=== PATIENT | female | born 1950 | race Caucasian/White ===

== ENCOUNTER 2016-11-24 13:42 | Inpatient (IN) | payer MEDICAID ==
--- NOTE | 2016-11-24 15:34 | DR.H&P ---
H&P - History & Physical for Day of: H&P Date: 11/24/16 - Chief Complaint Chief Complaint: FLU, FEVER, URI - History of Present Illness History of Present Illness: THE PATIENT IS A 65YO WF RESIDENT OF [facility] WHO HAS HAD ELEVATED TEMPERATURES OF 102F. PATIENT HAS HAD COUGH AND CONGESTION WELL. PATIENT TESTED POSITIVE FOR FLU. - Past Medical History Past Medical History: Anxiety, Arthritis, Depression, GERD, Hypothyroidism, PUD Additional Medical History: SYSTEMIC LUPUS, INSOMNIA, COMPRESSION FX THORACIC SPINE, BARRETTS ESOPHAGUS, +RODRÍGUEZ - Past Surgical History Surgical History: Hysterectomy, Joint Replacement (LEFT HIP), Ortho Surgery ( LEFT FOOT SURGERY) - Family History Family Medical History: Diabetes Mellitus, Cancer - Social History Does patient currently use any type of tobacco product: No Have you used tobacco products in the last 12 months: No Type of Tobacco Use: None Does any household member use tobacco: No Alcohol Use: None Drug Use: None - Review of Systems Constitutional: Fever, Chills, Weakness, Malaise Eyes: No Symptoms Reported ENT: No Symptoms Reported Respiratory: Cough Cardiovascular: No Symptoms Reported Gastrointestinal: No Symptoms Reported Genitourinary: No Symptoms Reported Musculoskeletal: No Symptoms Reported Skin: No Symptoms Reported Neurological: No Symptoms Reported Oriented: Normal Eyes: Normal Ear: Normal Nose: Normal Throat: Normal Respiratory: Diminished Throughout Cardiovascular: Normal : Normal Auscultation: Bowel Sounds: Normal Palpation: Normal Tenderness: Normal Skin: Normal Musculoskeletal: Normal Psychiatric: Normal Mood Description: Calm Affect: Quiet Speech Pattern: Unclear - Assessment/Plan (1) Influenza Status: Acute Plan: TAMIFLU, LABS, CXR (2) Fever Qualifiers: Fever type: due to other condition Encounter type: E Qualified Code(s): R50.81 - Fever presenting with conditions classified elsewhere Status: Acute Plan: ANTIPYRETICS (3) URI due to influenza Status: Acute Plan: TAMAFLU, CXR, LABS
[2016-11-24] MEDS: DUONEB 0.5 MG/3 MG NEB SCH ×2 (17:31→20:10)
[2016-11-24 17:46] LABS: BASOPHILS % (AUTO) 0.7 % (0.2-1.0); EOSINOPHILS % (AUTO) 0.6 % (0.9-2.9); HEMATOCRIT 27.7 % (36.0-47.0); HEMOGLOBIN 9.5 g/dL (12.0-16.0); LYMPHOCYTES # (AUTO) 0.8 X10^3/uL (1.3-2.9); LYMPHOCYTES % (AUTO) 19.1 % (21.0-51.0); MEAN CORPUSCULAR HEMOGLOBIN 28.5 pg (27.0-34.0); MEAN CORPUSCULAR HGB CONC 34.2 g/dL (33.0-35.0); MEAN CORPUSCULAR VOLUME 83.2 fL (80.0-100.0); MEAN PLATELET VOLUME 7.5 fL (7.4-11.0); MONOCYTES # (AUTO) 0.3 x10^3/uL (0.3-0.8); NEUTROPHILS # (AUTO) 3.2 x10^3/uL (2.2-4.8); NEUTROPHILS % (AUTO) 72.6 % (42.0-75.0); PLATELET COUNT 323 X10^3/uL (150.0-450.0); RED BLOOD COUNT 3.33 X10^6/uL (3.5-5.4); RED CELL DISTRIBUTION WIDTH 16.1 % (11.6-16.5); WHITE BLOOD COUNT 4.4 X10^3/uL (3.6-10.0)
[2016-11-24 18:04] LABS: BLOOD UREA NITROGEN 22 mg/dL (7-18); CALCIUM 7.9 mg/dL (8.5-10.1); CHLORIDE 96 mmol/L (98-107); CREATININE 1.55 mg/dL (0.55-1.02); GLUCOSE 91 mg/dL (65-99); SODIUM 135 mmol/L (136-145); eGFR BLACK RACES 43 (>60); eGFR NON BLACK RACES 36 (>60)
[2016-11-24] MEDS: NS 1000 ML 1,000 ML IV SCH (18:39)
[2016-11-24 19:33] LABS: BILIRUBIN,URINE NEGATIVE (NEGATIVE); BLOOD/HEMOGLOBIN,URINE 2+ (NEGATIVE); GLUCOSE, URINE NEGATIVE (NEGATIVE); KETONES,URINE NEGATIVE (NEGATIVE); LEUKOCYTE ESTERASE ,URINE 3+ (NEGATIVE); NITRITES,URINE NEGATIVE (NEGATIVE); PROTEIN,URINE 1+ (NEGATIVE); UROBILINOGEN,URINE NORMAL (NORMAL)
[2016-11-24 19:40] LABS: APPEARANCE,URINE HAZY (CLEAR); BACTERIA,URINE 4+ /HPF (NEGATIVE); COLOR,URINE YELLOW (YELLOW); RBC,URINE 0-2 /HPF (NEGATIVE); SQUAMOUS EPITHELIAL CELL,UR RARE /HPF (NEGATIVE)
[2016-11-24] MEDS ORDERED: KLONOPIN TAB 0.5 MG PO PRN (20:43)
[2016-11-24] MEDS ORDERED: K-LYTE EFFERVESCENT PO PRN (20:46)
[2016-11-24] MEDS ORDERED: K-RIDER 10 MEQ/NS 100 ML 10 MEQ/100 ML BAG IV PRN (20:46)
[2016-11-24] MEDS ORDERED: K-DUR TAB 20 MEQ PO PRN (20:46)
[2016-11-24] MEDS: REGLAN TAB 5 MG PO PRN (21:31)
[2016-11-24] MEDS: SOLU-MEDROL 40 MG VIAL IVP SCH (21:31)
[2016-11-24] MEDS: ZOFRAN INJ 4 MG VIAL IVP PRN (21:31)
[2016-11-24] MEDS: POTASSIUM CHLORIDE LIQ 20 MEQ UDC PO PRN (21:32)
[2016-11-24] MEDS: TAMIFLU PO SCH (21:32)
[2016-11-25] MEDS: DUONEB 0.5 MG/3 MG NEB SCH ×6 (00:39→20:11)
[2016-11-25 05:35] LABS: BASOPHILS % (AUTO) 0.3 % (0.2-1.0); HEMATOCRIT 29.1 % (36.0-47.0); HEMOGLOBIN 9.8 g/dL (12.0-16.0); LYMPHOCYTES # (AUTO) 0.2 X10^3/uL (1.3-2.9); LYMPHOCYTES % (AUTO) 7.4 % (21.0-51.0); MEAN CORPUSCULAR HEMOGLOBIN 28.2 pg (27.0-34.0); MEAN CORPUSCULAR HGB CONC 33.6 g/dL (33.0-35.0); MEAN PLATELET VOLUME 7.8 fL (7.4-11.0); MONOCYTES # (AUTO) 0 x10^3/uL (0.3-0.8); MONOCYTES % (AUTO) 1.2 % (0.0-13.0); NEUTROPHILS # (AUTO) 2.6 x10^3/uL (2.2-4.8); NEUTROPHILS % (AUTO) 91.1 % (42.0-75.0); PLATELET COUNT 338 X10^3/uL (150.0-450.0); RED BLOOD COUNT 3.46 X10^6/uL (3.5-5.4); RED CELL DISTRIBUTION WIDTH 15.9 % (11.6-16.5); WHITE BLOOD COUNT 2.8 X10^3/uL (3.6-10.0)
[2016-11-25 05:38] LABS: ALBUMIN 2.8 g/dL (3.4-5.0); CALCIUM 8.4 mg/dL (8.5-10.1); COR CA(FOR HYPOALB) 9.4 mg/dL (8.5-10.1); CREATININE 1.79 mg/dL (0.55-1.02); TOTAL PROTEIN 7.1 g/dL (6.4-8.2)
[2016-11-25 06:01] LABS: BAND NEUTROPHILS % 5 % (0-10); HYPOCHROMASIA SLIGHT; PLATELET MORPHOLOGY COMMENT NORMAL (NORMAL)
--- NOTE | 2016-11-25 06:45 | RAD ---
HISTORY: Cough, URI Study: Chest two-view Comparison: None Findings: The trachea is midline. The cardiac silhouette is enlarged. No congestive heart failure is noted.. The lungs are clear without focal infiltrate or effusion. The bony thorax is unremarkable. IMPRESSION: 1. Cardiomegaly without congestive heart failure 2. Lungs clear Reported By:
[2016-11-25] MEDS: TAMIFLU PO SCH ×2 (09:15→20:30)
[2016-11-25] MEDS: SOLU-MEDROL 40 MG VIAL IVP SCH ×2 (09:15→20:29)
[2016-11-25] MEDS: ZOFRAN INJ 4 MG VIAL IVP PRN ×2 (12:39→20:31)
[2016-11-25 17:49] VITALS: BMI 23.9
[2016-11-25] MEDS ORDERED: MAALOX or MYLANTA PO PRN (17:50)
[2016-11-25] MEDS: NS 1000 ML 1,000 ML IV SCH (18:07)
[2016-11-25] MEDS: REGLAN TAB 5 MG PO PRN (18:13)
--- NOTE | 2016-11-25 18:29 | PCM.PROG ---
Progress Note - Progress Note for Day of Date: 11/25/16 - Subjective Subjective: patient complains of nausea and vomiting this morning. Patient complains of being very nervous and jittery. Patient is a 65-year-old white female who was admitted one day ago from the [facility] with the stomach flu. Plan to continue IV hydration and encourage by mouth hydration as well as nausea control. We'll repeat a.m. labs - Past Medical Family Social History Past Med/Fam/Surg Hx: No changes since H&P Allergies: Allergies Loratadine [From Claritin] Allergy (Verified 11/24/16 17:20) Penicillins Allergy (Verified 11/24/16 17:20) Promethazine [From Phenergan] Allergy (Verified 11/24/16 17:20) - Review of Systems ROS: No change since H&P - Vital Signs and I&O's Vital Signs: Temperature 98.4 F Pulse Rate [Right Brachial] 110 Pulse Rate [Left Brachial] 100 Pulse Rate 101 Respiratory Rate 20 Blood Pressure [Right Arm] 108/60 Blood Pressure [Left Arm] 105/54 O2 Sat by Pulse Oximetry 96 Intake and Output: Intake & Output 11/23/16 11/24/16 11/25/16 11/26/16 11:59 11:59 11:59 11:59 Intake Total 580 1700 Output Total 300 Balance 280 1700 - Physical Exam Oriented: Normal Eyes: Normal Ear: Normal Nose: Normal Throat: Normal Respiratory: Normal Cardiovascular: Normal : Normal Auscultation: Bowel Sounds: Normal Tenderness: Epigastric Skin: Normal Musculoskeletal: Normal Psychiatric: Anxiety Mood Description: Anxious Affect: Quiet Speech Pattern: Clear, Appropriate - Laboratory and Diagnostics Result Diagrams: 11/25/16 03:45 11/25/16 03:45 Labs: 11/24/16 19:16 Urine,Clean Catch Urine Culture - Preliminary Laboratory WBC 2.8 X10^3/uL (3.6-10.0) L 11/25/16 03:45 RBC 3.46 X10^6/uL (3.5-5.4) L 11/25/16 03:45 Hgb 9.8 g/dL (12.0-16.0) L 11/25/16 03:45 Hct 29.1 % (36.0-47.0) L 11/25/16 03:45 MCV 84.0 fL (80.0-100.0) 11/25/16 03:45 MCH 28.2 pg (27.0-34.0) 11/25/16 03:45 MCHC 33.6 g/dL (33.0-35.0) 11/25/16 03:45 RDW 15.9 % (11.6-16.5) 11/25/16 03:45 Plt Count 338 X10^3/uL (150.0-450.0) 11/25/16 03:45 Plt Count Comment Adequate (ADEQUATE) 11/25/16 03:45 MPV 7.8 fL (7.4-11.0) 11/25/16 03:45 Neut % 91.1 % (42.0-75.0) H 11/25/16 03:45 Lymph % 7.4 % (21.0-51.0) L 11/25/16 03:45 [place] % 1.2 % (0.0-13.0) 11/25/16 03:45 Eos % 0.0 % (0.9-2.9) L 11/25/16 03:45 Baso % 0.3 % (0.2-1.0) 11/25/16 03:45 Neut # 2.6 x10^3/uL (2.2-4.8) 11/25/16 03:45 Lymph # 0.2 X10^3/uL (1.3-2.9) L 11/25/16 03:45 [place] # 0 x10^3/uL (0.3-0.8) L 11/25/16 03:45 Eos # 0.0 x10^3/uL (0.0-0.2) 11/25/16 03:45 Baso # 0.0 X10^3/uL (0.0-0.1) 11/25/16 03:45 Absolute Nucleated RBC 0.0 /100WBC 11/25/16 03:45 Total Counted 100 11/25/16 03:45 Neutrophils % (Manual) 81 % (39-76) H 11/25/16 03:45 Band Neutrophils % 5 % (0-10) 11/25/16 03:45 Lymphocytes % (Manual) 14 % (13-43) 11/25/16 03:45 Plt Morphology Comment Normal (NORMAL) 11/25/16 03:45 RBC Morphology Abnormal (NORMAL) A 11/25/16 03:45 Hypochromasia Slight A 11/25/16 03:45 Sodium 137 mmol/L (136-145) 11/25/16 03:45 Corrected Sodium 139 mmol/L (136-145) 11/25/16 03:45 Potassium 3.5 mmol/L (3.5-5.1) 11/25/16 03:45 Chloride 97 mmol/L (98-107) L 11/25/16 03:45 Carbon Dioxide 25.0 mmol/L (21-32) 11/25/16 03:45 BUN 21 mg/dL (7-18) H 11/25/16 03:45 Creatinine 1.79 mg/dL (0.55-1.02) H 11/25/16 03:45 Est GFR (MDRD) Af Amer 37 (>60) L 11/25/16 03:45 Est GFR (MDRD) Non-Af 30 (>60) L 11/25/16 03:45 Glucose 186 mg/dL (65-99) H 11/25/16 03:45 Calcium 8.4 mg/dL (8.5-10.1) L 11/25/16 03:45 Corrected Calcium 9.4 mg/dL (8.5-10.1) 11/25/16 03:45 Magnesium 1.9 mg/dL (1.7-2.9) 11/24/16 17:30 Total Bilirubin 0.20 mg/dL (0.2-1.0) 11/25/16 03:45 AST 22 Units/L (15-37) 11/25/16 03:45 ALT 13 Units/L (12-78) 11/25/16 03:45 Alkaline Phosphatase 91 Units/L (46-116) 11/25/16 03:45 Total Protein 7.1 g/dL (6.4-8.2) 11/25/16 03:45 Albumin 2.8 g/dL (3.4-5.0) L 11/25/16 03:45 Globulin 4.3 g/dL (2.5-4.5) 11/25/16 03:45 Albumin/Globulin Ratio 0.7 Ratio (1.1-2.1) L 11/25/16 03:45 Specimen Type Clean catch urine 11/24/16 19:16 Urine Color Yellow (YELLOW) 11/24/16 19:16 Urine Appearance Hazy (CLEAR) 11/24/16 19:16 Urine pH 6.0 (5.0 - 8.0) 11/24/16 19:16 Ur Specific [employer] 1.010 (1.000-1.030) 11/24/16 19:16 Urine Protein 1+ (NEGATIVE) 11/24/16 19:16 Urine Glucose (UA) Negative (NEGATIVE) 11/24/16 19:16 Urine Ketones Negative (NEGATIVE) 11/24/16 19:16 Urine Occult Blood 2+ (NEGATIVE) 11/24/16 19:16 Urine Nitrite Negative (NEGATIVE) 11/24/16 19:16 Urine Bilirubin Negative (NEGATIVE) 11/24/16 19:16 Urine Urobilinogen Normal (NORMAL) 11/24/16 19:16 Ur Leukocyte Esterase 3+ (NEGATIVE) 11/24/16 19:16 Urine RBC 0-2 /HPF (NEGATIVE) 11/24/16 19:16 Urine WBC 11-25 /HPF (NEGATIVE) 11/24/16 19:16 Ur Squamous Epith Cells Rare /HPF (NEGATIVE) 11/24/16 19:16 Urine Bacteria 4+ /HPF (NEGATIVE) 11/24/16 19:16 Ur Culture Indicated? Yes/culture set up 11/24/16 19:16 Influenza A (H1N1) PCR Not detected (NOT DETECT) 11/24/16 17:26 Influenza Type A (PCR) Positive (NEGATIVE) A 11/24/16 17:26 Influenza Type B (PCR) Negative (NEGATIVE) 11/24/16 17:26 - Plan (1) Influenza Status: Acute Plan: TAMIFLU, LABS, CXR (2) SIMA (generalized anxiety disorder) Status: Acute Plan: RESUME HOME MEDS, MONITOR (3) Nausea & vomiting Status: Acute Qualifiers: Vomiting type: V Vomiting Intractability: V Plan: ANTIEMETICS, IV HYDRATION, CLEAR LIQUID DIET, MAY ADVANCE (4) Fever Status: Acute Qualifiers: Fever type: due to other condition Encounter type: E Qualified Code(s): R50.81 - Fever presenting with conditions classified elsewhere Plan: ANTIPYRETICS
[2016-11-25] MEDS: KLONOPIN TAB 0.5 MG PO SCH (21:43)
[2016-11-26] MEDS: DUONEB 0.5 MG/3 MG NEB SCH ×6 (00:31→20:48)
[2016-11-26 05:22] LABS: BASOPHILS % (AUTO) 0.1 % (0.2-1.0); HEMATOCRIT 27.3 % (36.0-47.0); HEMOGLOBIN 9.2 g/dL (12.0-16.0); LYMPHOCYTES # (AUTO) 0.5 X10^3/uL (1.3-2.9); LYMPHOCYTES % (AUTO) 5.9 % (21.0-51.0); MEAN CORPUSCULAR HEMOGLOBIN 28.5 pg (27.0-34.0); MEAN CORPUSCULAR HGB CONC 33.9 g/dL (33.0-35.0); MEAN CORPUSCULAR VOLUME 84.1 fL (80.0-100.0); MEAN PLATELET VOLUME 7.6 fL (7.4-11.0); MONOCYTES # (AUTO) 0.2 x10^3/uL (0.3-0.8); MONOCYTES % (AUTO) 2.1 % (0.0-13.0); NEUTROPHILS # (AUTO) 7.3 x10^3/uL (2.2-4.8); NEUTROPHILS % (AUTO) 91.9 % (42.0-75.0); PLATELET COUNT 339 X10^3/uL (150.0-450.0); RED BLOOD COUNT 3.24 X10^6/uL (3.5-5.4); RED CELL DISTRIBUTION WIDTH 16.3 % (11.6-16.5)
[2016-11-26 05:43] LABS: ALBUMIN 2.8 g/dL (3.4-5.0); CALCIUM 8.2 mg/dL (8.5-10.1); CARBON DIOXIDE 27.1 mmol/L (21-32); COR CA(FOR HYPOALB) 9.2 mg/dL (8.5-10.1); CREATININE 1.37 mg/dL (0.55-1.02); TOTAL PROTEIN 6.7 g/dL (6.4-8.2)
[2016-11-26 06:08] LABS: BAND NEUTROPHILS % 12 % (0-10); HYPOCHROMASIA 1+; PLATELET MORPHOLOGY COMMENT NORMAL (NORMAL)
[2016-11-26] MEDS: POTASSIUM CHLORIDE LIQ 20 MEQ UDC PO PRN (06:13)
[2016-11-26] MEDS: KLONOPIN TAB 0.5 MG PO SCH (06:13)
[2016-11-26] MEDS ORDERED: DULCOLAX TAB EC 5 MG PO PRN (08:41)
[2016-11-26] MEDS ORDERED: DUONEB 0.5 MG/3 MG NEB PRN (08:41)
[2016-11-26] MEDS ORDERED: TYLENOL 325 MG TAB PO PRN (08:41)
[2016-11-26] MEDS ORDERED: ULTRAM GT PRN (08:41)
[2016-11-26] MEDS ORDERED: [UNRECOGNIZED DRUG - REMARK] GT SCH (09:00)
[2016-11-26] MEDS ORDERED: [UNRECOGNIZED DRUG - OTHER] PO SCH (09:00)
[2016-11-26] MEDS: ZYRTEC TAB 10 MG GT SCH (09:17)
[2016-11-26] MEDS: CELEXA PO SCH (09:17)
[2016-11-26] MEDS: NORVASC TAB 5 MG GT SCH (09:17)
[2016-11-26] MEDS: ESTRACE GT SCH (09:17)
[2016-11-26] MEDS: MUCINEX EXPECTORANT PO SCH ×2 (09:17→21:19)
[2016-11-26] MEDS: SYNTHROID 50 mcg TAB GT SCH (09:18)
[2016-11-26] MEDS: TAMIFLU PO SCH ×2 (09:18→21:19)
[2016-11-26] MEDS: ARTIFICIAL TEARS DROPS EACHEYE SCH ×4 (09:18→21:20)
[2016-11-26] MEDS: TAB-A-VITE PO SCH (09:18)
[2016-11-26] MEDS: SOLU-MEDROL 40 MG VIAL IVP SCH ×2 (09:18→21:18)
[2016-11-26] MEDS: [UNRECOGNIZED DRUG - OTHER] EACHEYE SCH ×2 (09:22→21:20)
--- NOTE | 2016-11-26 18:33 | PCM.PROG ---
Progress Note - Subjective Subjective: Patient is a 65-year-old white female who was admitted one day ago from the [facility] with the stomach flu. pt co improved nausea, no vomiting , milding productive cough. Plan to continue IV hydration and encourage by mouth hydration as well as nausea control. We'll repeat a.m. labs - Past Medical Family Social History Past Med/Fam/Surg Hx: No changes since H&P Allergies: Allergies Loratadine [From Claritin] Allergy (Verified 11/24/16 17:20) Penicillins Allergy (Verified 11/24/16 17:20) Promethazine [From Phenergan] Allergy (Verified 11/24/16 17:20) - Review of Systems ROS: No change since H&P - Vital Signs and I&O's Vital Signs: Temperature 98.2 F Pulse Rate [Right Brachial] 107 Pulse Rate [Left Brachial] 100 Pulse Rate 74 Respiratory Rate 18 Blood Pressure [Right Arm] 107/57 Blood Pressure [Left Arm] 105/54 O2 Sat by Pulse Oximetry 94 Intake and Output: Intake & Output 11/24/16 11/25/16 11/26/16 11/27/16 11:59 11:59 11:59 11:59 Intake Total 580 2160 480 Output Total 300 600 Balance 280 1560 480 - Physical Exam Oriented: Normal Eyes: Normal Ear: Normal Nose: Normal Throat: Normal Respiratory: Normal Cardiovascular: Normal : Normal Auscultation: Bowel Sounds: Normal Tenderness: Epigastric Skin: Normal Musculoskeletal: Normal Psychiatric: Anxiety Mood Description: Anxious Affect: Quiet Speech Pattern: Clear, Appropriate - Laboratory and Diagnostics Result Diagrams: 11/26/16 04:00 11/26/16 04:00 Labs: 11/24/16 17:30 Blood Blood Culture - Preliminary 11/24/16 19:16 Urine,Clean Catch Urine Culture - Final Escherichia Coli Laboratory WBC 8.0 X10^3/uL (3.6-10.0) 11/26/16 04:00 RBC 3.24 X10^6/uL (3.5-5.4) L 11/26/16 04:00 Hgb 9.2 g/dL (12.0-16.0) L 11/26/16 04:00 Hct 27.3 % (36.0-47.0) L 11/26/16 04:00 MCV 84.1 fL (80.0-100.0) 11/26/16 04:00 MCH 28.5 pg (27.0-34.0) 11/26/16 04:00 MCHC 33.9 g/dL (33.0-35.0) 11/26/16 04:00 RDW 16.3 % (11.6-16.5) 11/26/16 04:00 Plt Count 339 X10^3/uL (150.0-450.0) 11/26/16 04:00 Plt Count Comment Adequate (ADEQUATE) 11/26/16 04:00 MPV 7.6 fL (7.4-11.0) 11/26/16 04:00 Neut % 91.9 % (42.0-75.0) H 11/26/16 04:00 Lymph % 5.9 % (21.0-51.0) L 11/26/16 04:00 [place] % 2.1 % (0.0-13.0) 11/26/16 04:00 Eos % 0.0 % (0.9-2.9) L 11/26/16 04:00 Baso % 0.1 % (0.2-1.0) L 11/26/16 04:00 Neut # 7.3 x10^3/uL (2.2-4.8) H 11/26/16 04:00 Lymph # 0.5 X10^3/uL (1.3-2.9) L 11/26/16 04:00 [place] # 0.2 x10^3/uL (0.3-0.8) L 11/26/16 04:00 Eos # 0.0 x10^3/uL (0.0-0.2) 11/26/16 04:00 Baso # 0.0 X10^3/uL (0.0-0.1) 11/26/16 04:00 Absolute Nucleated RBC 0.0 /100WBC 11/26/16 04:00 Total Counted 100 11/26/16 04:00 Neutrophils % (Manual) 76 % (39-76) 11/26/16 04:00 Band Neutrophils % 12 % (0-10) H 11/26/16 04:00 Lymphocytes % (Manual) 7 % (13-43) L 11/26/16 04:00 Monocytes % (Manual) 5 % (4-9) 11/26/16 04:00 Plt Morphology Comment Normal (NORMAL) 11/26/16 04:00 RBC Morphology Abnormal (NORMAL) A 11/26/16 04:00 Hypochromasia 1+ A 11/26/16 04:00 Sodium 140 mmol/L (136-145) 11/26/16 04:00 Corrected Sodium 141 mmol/L (136-145) 11/26/16 04:00 Potassium 3.4 mmol/L (3.5-5.1) L 11/26/16 04:00 Chloride 102 mmol/L (98-107) 11/26/16 04:00 Carbon Dioxide 27.1 mmol/L (21-32) 11/26/16 04:00 BUN 19 mg/dL (7-18) H 11/26/16 04:00 Creatinine 1.37 mg/dL (0.55-1.02) H 11/26/16 04:00 Est GFR (MDRD) Af Amer 50 (>60) L 11/26/16 04:00 Est GFR (MDRD) Non-Af 41 (>60) L 11/26/16 04:00 Glucose 159 mg/dL (65-99) H 11/26/16 04:00 Calcium 8.2 mg/dL (8.5-10.1) L 11/26/16 04:00 Corrected Calcium 9.2 mg/dL (8.5-10.1) 11/26/16 04:00 Magnesium 1.9 mg/dL (1.7-2.9) 11/24/16 17:30 Total Bilirubin 0.20 mg/dL (0.2-1.0) 11/26/16 04:00 AST 21 Units/L (15-37) 11/26/16 04:00 ALT 12 Units/L (12-78) 11/26/16 04:00 Alkaline Phosphatase 81 Units/L (46-116) 11/26/16 04:00 Total Protein 6.7 g/dL (6.4-8.2) 11/26/16 04:00 Albumin 2.8 g/dL (3.4-5.0) L 11/26/16 04:00 Globulin 3.9 g/dL (2.5-4.5) 11/26/16 04:00 Albumin/Globulin Ratio 0.7 Ratio (1.1-2.1) L 11/26/16 04:00 Specimen Type Clean catch urine 11/24/16 19:16 Urine Color Yellow (YELLOW) 11/24/16 19:16 Urine Appearance Hazy (CLEAR) 11/24/16 19:16 Urine pH 6.0 (5.0 - 8.0) 11/24/16 19:16 Ur Specific [place] 1.010 (1.000-1.030) 11/24/16 19:16 Urine Protein 1+ (NEGATIVE) 11/24/16 19:16 Urine Glucose (UA) Negative (NEGATIVE) 11/24/16 19:16 Urine Ketones Negative (NEGATIVE) 11/24/16 19:16 Urine Occult Blood 2+ (NEGATIVE) 11/24/16 19:16 Urine Nitrite Negative (NEGATIVE) 11/24/16 19:16 Urine Bilirubin Negative (NEGATIVE) 11/24/16 19:16 Urine Urobilinogen Normal (NORMAL) 11/24/16 19:16 Ur Leukocyte Esterase 3+ (NEGATIVE) 11/24/16 19:16 Urine RBC 0-2 /HPF (NEGATIVE) 11/24/16 19:16 Urine WBC 11-25 /HPF (NEGATIVE) 11/24/16 19:16 Ur Squamous Epith Cells Rare /HPF (NEGATIVE) 11/24/16 19:16 Urine Bacteria 4+ /HPF (NEGATIVE) 11/24/16 19:16 Ur Culture Indicated? Yes/culture set up 11/24/16 19:16 Influenza A (H1N1) PCR Not detected (NOT DETECT) 11/24/16 17:26 Influenza Type A (PCR) Positive (NEGATIVE) A 11/24/16 17:26 Influenza Type B (PCR) Negative (NEGATIVE) 11/24/16 17:26 - Plan (1) Influenza Status: Acute Plan: TAMIFLU, LABS, CXR (2) SIMA (generalized anxiety disorder) Status: Chronic Plan: RESUME HOME MEDS, MONITOR (3) Nausea & vomiting Status: Acute Qualifiers: Vomiting type: V Vomiting Intractability: V Plan: ANTIEMETICS, IV HYDRATION, advance diet (4) Fever Status: Acute Qualifiers: Fever type: due to other condition Encounter type: E Qualified Code(s): R50.81 - Fever presenting with conditions classified elsewhere Plan: ANTIPYRETICS
[2016-11-26] MEDS ORDERED: DESYREL PO SCH (21:00)
[2016-11-26] MEDS ORDERED: REMERON GT SCH (21:00)
[2016-11-26] MEDS ORDERED: PATIENT'S HOME MEDICATION RESPIRATORY (Melatonin [Melatonin] 3 MG) GT SCH (21:00)
[2016-11-26] MEDS: NS 1000 ML 1,000 ML IV SCH (21:19)
[2016-11-26] MEDS: KLONOPIN TAB 0.5 MG PO PRN (21:26)
[2016-11-27] MEDS: DUONEB 0.5 MG/3 MG NEB SCH ×4 (01:23→12:59)
[2016-11-27 06:25] LABS: BASOPHILS % (AUTO) 0.1 % (0.2-1.0); HEMATOCRIT 25.8 % (36.0-47.0); HEMOGLOBIN 8.8 g/dL (12.0-16.0); LYMPHOCYTES # (AUTO) 0.3 X10^3/uL (1.3-2.9); LYMPHOCYTES % (AUTO) 4.8 % (21.0-51.0); MEAN CORPUSCULAR HEMOGLOBIN 28.7 pg (27.0-34.0); MEAN CORPUSCULAR HGB CONC 34.2 g/dL (33.0-35.0); MEAN CORPUSCULAR VOLUME 83.8 fL (80.0-100.0); MEAN PLATELET VOLUME 7.9 fL (7.4-11.0); MONOCYTES # (AUTO) 0.1 x10^3/uL (0.3-0.8); NEUTROPHILS # (AUTO) 6.4 x10^3/uL (2.2-4.8); NEUTROPHILS % (AUTO) 93.1 % (42.0-75.0); PLATELET COUNT 320 X10^3/uL (150.0-450.0); RED BLOOD COUNT 3.08 X10^6/uL (3.5-5.4); RED CELL DISTRIBUTION WIDTH 16.2 % (11.6-16.5); WHITE BLOOD COUNT 6.8 X10^3/uL (3.6-10.0)
[2016-11-27 06:30] LABS: ALANINE AMINOTRANSFERASE 14 Units/L (12-78); ALBUMIN 2.7 g/dL (3.4-5.0); ALKALINE PHOSPHATASE 74 Units/L (46-116); ASPARTATE AMINO TRANSFERASE 25 Units/L (15-37); BLOOD UREA NITROGEN 15 mg/dL (7-18); CALCIUM 8.2 mg/dL (8.5-10.1); CARBON DIOXIDE 25.9 mmol/L (21-32); CHLORIDE 106 mmol/L (98-107); COR CA(FOR HYPOALB) 9.2 mg/dL (8.5-10.1); COR NA(FOR HYPERGLY) 144 mmol/L (136-145); CREATININE 1.17 mg/dL (0.55-1.02); GLUCOSE 163 mg/dL (65-99); SODIUM 142 mmol/L (136-145); TOTAL PROTEIN 6.3 g/dL (6.4-8.2); eGFR BLACK RACES > 60 (>60); eGFR NON BLACK RACES 50 (>60)
--- NOTE | 2016-11-27 06:50 | RAD ---
HISTORY: Fluid, URI, fever Study: Single-view chest, done portably Comparison: November 24, 2016 Findings: Trachea is midline. There is cardiomegaly with aortic uncoiling and mild pulmonary vascular congesti on. Lungs and pleural spaces are clear. No acute osseous changes are identified. IMPRESSION: Cardiomegaly with mild pulmonary vascular congestion. Clear lungs and pleural spaces. Reported By:
[2016-11-27 07:33] LABS: BAND NEUTROPHILS % 12 % (0-10); PLATELET MORPHOLOGY COMMENT NORMAL (NORMAL)
[2016-11-27] MEDS ORDERED: ROCEPHIN VIAL 1 GM 1 GM in NS 50 ML IV + SPIKE MINIBAG* 50 ML IV SCH (09:00)
[2016-11-27] MEDS: TAMIFLU PO SCH (09:22)
[2016-11-27] MEDS: NORVASC TAB 5 MG GT SCH (09:22)
[2016-11-27] MEDS: ZYRTEC TAB 10 MG GT SCH (09:22)
[2016-11-27] MEDS: MUCINEX EXPECTORANT PO SCH (09:22)
[2016-11-27] MEDS: SOLU-MEDROL 40 MG VIAL IVP SCH (09:22)
[2016-11-27] MEDS: ESTRACE GT SCH (09:22)
[2016-11-27] MEDS: SYNTHROID 50 mcg TAB GT SCH (09:24)
[2016-11-27] MEDS: CELEXA PO SCH (09:24)
[2016-11-27] MEDS: TAB-A-VITE PO SCH (09:24)
[2016-11-27] MEDS: KLONOPIN TAB 0.5 MG PO PRN (09:26)
--- NOTE | 2016-11-27 15:41 | PCM.DCPLAN ---
Discharge Summary - Admission Date Date of Admission: 11/24/16 - Discharge Date Discharge Date: 11/27/16 - Admission Diagnoses (1) Influenza Status: Acute (2) SIMA (generalized anxiety disorder) Status: Chronic (3) Nausea & vomiting Status: Acute (4) Fever Status: Acute - Discharge Diagnoses Discharge Diagnosis: SAME ADMISSION - Discharge Medications Discharge Medications: Acetaminophen [TYLENOL 325 MG TAB *] 650 mg GT Q6H PRN 11/24/16 [History] Amlodipine Besylate [NORVASC 5 MG *] 5 mg GT DAILY 11/24/16 [History] Artificial Tears (Ophth) [ARTIFICIAL TEARS (ophth) drops *] 1 drop EACHEYE QID 11/24/16 [History] Azithromycin [Zithromax] 500 mg GT DAILY 11/24/16 [History] Bisacodyl EC [DULCOLAX TAB EC 5 MG *] 10 mg PO DAILY PRN 11/24/16 [History] Cetirizine HCl [Zyrtec Allergy] 10 mg GT DAILY 11/24/16 [History] Citalopram Hydrobromide [Celexa 10 mg] 30 mg PO DAILY 11/24/16 [History] Clonazepam [Klonopin Tab 0.5 mg] 0.5 mg PO Q12H PRN 11/24/16 [History] Cyclosporine (Ophth) [Restasis] 1 drop EACHEYE BID 11/24/16 [History] Estradiol 1 mg GT DAILY 11/24/16 [History] Guaifenesin [Guaifenesin ER] 600 mg GT BID 11/24/16 [History] Hydrochlorothiazide [HYDROCHLOROTHIAZIDE 25 MG TAB *] 25 mg PO DAILY 11/24/16 [ History] Ipratropium/Albuterol Nebule [DUONEB 0.5 MG/3 MG NEBULE *] 1 ea INH Q6H PRN 12/07 [History] Levothyroxine Sodium [SYNTHROID 50 mcg *] 50 mcg GT DAILY 11/24/16 [History] Melatonin 3 mg GT HS 11/24/16 [History] Metoclopramide HCl [Reglan] 5 mg GT Q8H PRN 11/24/16 [History] Mirtazapine [REMERON 15 MG *] 7.5 mg GT HS 11/24/16 [History] Multiple Vitamin (Adult) [MULTIVITAMIN ADULT TAB *] 1 ea GT DAILY 11/24/16 [ History] Ondansetron HCl [ZOFRAN TAB 4 MG *] 4 mg GT Q4H PRN 11/24/16 [History] Oxybutynin Chloride [DITROPAN 5 MG (PLAIN) *] 5 mg GT BID 11/24/16 [History] Tramadol HCl 50 mg GT Q8H PRN 11/24/16 [History] Trazodone HCl [TRAZODONE 50 MG (DESYREL) *] 50 mg PO HS 11/24/16 [History] - Hospital Course Vital Signs: Temperature 98.5 F Pulse Rate [Right Brachial] 106 Pulse Rate [Left Brachial] 100 Pulse Rate 69 Respiratory Rate 18 Blood Pressure [Right Arm] 108/61 Blood Pressure [Left Arm] 105/54 O2 Sat by Pulse Oximetry 95 Latest Lab Results: Laboratory Last Values WBC 6.8 X10^3/uL (3.6-10.0) 11/27/16 03:25 RBC 3.08 X10^6/uL (3.5-5.4) L 11/27/16 03:25 Hgb 8.8 g/dL (12.0-16.0) L 11/27/16 03:25 Hct 25.8 % (36.0-47.0) L 11/27/16 03:25 MCV 83.8 fL (80.0-100.0) 11/27/16 03:25 MCH 28.7 pg (27.0-34.0) 11/27/16 03:25 MCHC 34.2 g/dL (33.0-35.0) 11/27/16 03:25 RDW 16.2 % (11.6-16.5) 11/27/16 03:25 Plt Count 320 X10^3/uL (150.0-450.0) 11/27/16 03:25 Plt Count Comment Adequate (ADEQUATE) 11/27/16 03:25 MPV 7.9 fL (7.4-11.0) 11/27/16 03:25 Neut % 93.1 % (42.0-75.0) H 11/27/16 03:25 Lymph % 4.8 % (21.0-51.0) L 11/27/16 03:25 [place] % 2.0 % (0.0-13.0) 11/27/16 03:25 Eos % 0.0 % (0.9-2.9) L 11/27/16 03:25 Baso % 0.1 % (0.2-1.0) L 11/27/16 03:25 Neut # 6.4 x10^3/uL (2.2-4.8) H 11/27/16 03:25 Lymph # 0.3 X10^3/uL (1.3-2.9) L 11/27/16 03:25 [place] # 0.1 x10^3/uL (0.3-0.8) L 11/27/16 03:25 Eos # 0.0 x10^3/uL (0.0-0.2) 11/27/16 03:25 Baso # 0.0 X10^3/uL (0.0-0.1) 11/27/16 03:25 Absolute Nucleated RBC 0.0 /100WBC 11/27/16 03:25 Total Counted 100 11/27/16 03:25 Neutrophils % (Manual) 82 % (39-76) H 11/27/16 03:25 Band Neutrophils % 12 % (0-10) H 11/27/16 03:25 Lymphocytes % (Manual) 6 % (13-43) L 11/27/16 03:25 Monocytes % (Manual) 5 % (4-9) 11/26/16 04:00 Plt Morphology Comment Normal (NORMAL) 11/27/16 03:25 RBC Morphology Normal (NORMAL) 11/27/16 03:25 Hypochromasia 1+ A 11/26/16 04:00 Sodium 142 mmol/L (136-145) 11/27/16 03:25 Corrected Sodium 144 mmol/L (136-145) 11/27/16 03:25 Potassium 3.6 mmol/L (3.5-5.1) 11/27/16 13:15 Chloride 106 mmol/L (98-107) 11/27/16 03:25 Carbon Dioxide 25.9 mmol/L (21-32) 11/27/16 03:25 BUN 15 mg/dL (7-18) 11/27/16 03:25 Creatinine 1.17 mg/dL (0.55-1.02) H 11/27/16 03:25 Est GFR (MDRD) Af Amer > 60 (>60) 11/27/16 03:25 Est GFR (MDRD) Non-Af 50 (>60) L 11/27/16 03:25 Glucose 163 mg/dL (65-99) H 11/27/16 03:25 Calcium 8.2 mg/dL (8.5-10.1) L 11/27/16 03:25 Corrected Calcium 9.2 mg/dL (8.5-10.1) 11/27/16 03:25 Magnesium 1.9 mg/dL (1.7-2.9) 11/24/16 17:30 Total Bilirubin 0.20 mg/dL (0.2-1.0) 11/27/16 03:25 AST 25 Units/L (15-37) 11/27/16 03:25 ALT 14 Units/L (12-78) 11/27/16 03:25 Alkaline Phosphatase 74 Units/L (46-116) 11/27/16 03:25 Total Protein 6.3 g/dL (6.4-8.2) L 11/27/16 03:25 Albumin 2.7 g/dL (3.4-5.0) L 11/27/16 03:25 Globulin 3.6 g/dL (2.5-4.5) 11/27/16 03:25 Albumin/Globulin Ratio 0.8 Ratio (1.1-2.1) L 11/27/16 03:25 Specimen Type Clean catch urine 11/24/16 19:16 Urine Color Yellow (YELLOW) 11/24/16 19:16 Urine Appearance Hazy (CLEAR) 11/24/16 19:16 Urine pH 6.0 (5.0 - 8.0) 11/24/16 19:16 Ur Specific [place] 1.010 (1.000-1.030) 11/24/16 19:16 Urine Protein 1+ (NEGATIVE) 11/24/16 19:16 Urine Glucose (UA) Negative (NEGATIVE) 11/24/16 19:16 Urine Ketones Negative (NEGATIVE) 11/24/16 19:16 Urine Occult Blood 2+ (NEGATIVE) 11/24/16 19:16 Urine Nitrite Negative (NEGATIVE) 11/24/16 19:16 Urine Bilirubin Negative (NEGATIVE) 11/24/16 19:16 Urine Urobilinogen Normal (NORMAL) 11/24/16 19:16 Ur Leukocyte Esterase 3+ (NEGATIVE) 11/24/16 19:16 Urine RBC 0-2 /HPF (NEGATIVE) 11/24/16 19:16 Urine WBC 11-25 /HPF (NEGATIVE) 11/24/16 19:16 Ur Squamous Epith Cells Rare /HPF (NEGATIVE) 11/24/16 19:16 Urine Bacteria 4+ /HPF (NEGATIVE) 11/24/16 19:16 Ur Culture Indicated? Yes/culture set up 11/24/16 19:16 Influenza A (H1N1) PCR Not detected (NOT DETECT) 11/24/16 17:26 Influenza Type A (PCR) Positive (NEGATIVE) A 11/24/16 17:26 Influenza Type B (PCR) Negative (NEGATIVE) 11/24/16 17:26 Hospital Course: Patient is a 65-year-old white female who was a direct admit from the [facility] with nausea and vomiting, flulike symptoms, positive influenza B. Patient was admitted for further evaluation of acute illness. Patient resumed home medication received IV antibiotics as well as respiratory therapy for 3 days. Patient's diet resumed her normal diet without nausea vomiting and the patient' s chest x-ray was clear. Patient was discharged back to [facility] to resume home medications continue to rest and increase by mouth water intake. Patient to follow-up with Dr. Lundberg on routine [facility] visit - Discharge Plan Disposition: 01 HOME, SELF-CARE Condition: Stable - Follow ups/Referrals Follow ups/Referrals: WILL LUNDBERG [Primary Care Provider] - - Instructions Instructions: Fever, Adult, Influenza, Adult, [id number]
[2016-11-27 16:49] VITALS: BP 114/59
== END 2016-11-27 19:00 | DRG 195 ==
LOC: MED/SURG 13:42
PROVIDERS: ADMIT Internal Medicine; ATTEND Internal Medicine
DX: J10.1 Influenza due to other identified influenza virus with other respiratory manifestations (principal); R50.81 Fever presenting with conditions classified elsewhere; M13.89 Other specified arthritis, multiple sites; K21.9 Gastro-esophageal reflux disease without esophagitis; E03.8 Other specified hypothyroidism; F41.1 Generalized anxiety disorder; R11.2 Nausea with vomiting, unspecified; B96.29 Other Escherichia coli [E. coli] as the cause of diseases classified elsewhere
CPT/HCPCS: 36415; 71010; 71020; 80048; 80053; 81001; 83735; 84132; 85025; 87040; 87086; 87088; 87186; 87502; 87503; 93005; 93010; 94640; A4222; G9035; J0696; J2405; J2920; J7620

== ENCOUNTER 2018-11-01 14:31 | Inpatient (IN) ==
[2018-11-01] MEDS: NS 1000 ML 1,000 ML IV SCH (16:00)
[2018-11-01 16:21] LABS: BASOPHILS % (AUTO) 0.6 % (0.2-1.0); EOSINOPHILS # (AUTO) 0.1 x10^3/uL (0.0-0.2); EOSINOPHILS % (AUTO) 1.5 % (0.9-2.9); HEMOGLOBIN 13.4 g/dL (12.0-16.0); LYMPHOCYTES # (AUTO) 2.2 X10^3/uL (1.3-2.9); LYMPHOCYTES % (AUTO) 41.5 % (21.0-51.0); MEAN CORPUSCULAR HEMOGLOBIN 30.5 pg (27.0-34.0); MEAN CORPUSCULAR HGB CONC 34.4 g/dL (33.0-35.0); MEAN CORPUSCULAR VOLUME 88.7 fL (80.0-100.0); MONOCYTES # (AUTO) 0.3 x10^3/uL (0.3-0.8); MONOCYTES % (AUTO) 4.9 % (0.0-13.0); NEUTROPHILS # (AUTO) 2.7 x10^3/uL (2.2-4.8); NEUTROPHILS % (AUTO) 51.5 % (42.0-75.0); PLATELET COUNT 274 X10^3/uL (150.0-450.0); RED BLOOD COUNT 4.39 X10^6/uL (3.5-5.4); WHITE BLOOD COUNT 5.2 X10^3/uL (3.6-10.0)
--- NOTE | 2018-11-01 16:27 | RAD ---
HISTORY: Altered mental status. Weakness. Study: AP portable chest Comparison: 12/10/2016 Findings: Mild chronic interstitial scarring is noted. The heart size is normal. Mild tortuosity of the aorta is present. Prominent skin fold is noted on the right. No acute bony abnormalities are identified. IMPRESSION: 1. No radiographic evidence of acute cardiopulmonary disease. Reported By:
[2018-11-01 16:35] LABS: BILIRUBIN,URINE NEGATIVE (NEGATIVE); BLOOD/HEMOGLOBIN,URINE NEGATIVE (NEGATIVE); GLUCOSE, URINE NEGATIVE (NEGATIVE); KETONES,URINE NEGATIVE (NEGATIVE); LEUKOCYTE ESTERASE ,URINE 2+ (NEGATIVE); NITRITES,URINE NEGATIVE (NEGATIVE); PROTEIN,URINE NEGATIVE (NEGATIVE); UROBILINOGEN,URINE NORMAL (NORMAL)
[2018-11-01 16:37] LABS: APPEARANCE,URINE CLEAR (CLEAR); COLOR,URINE STRAW (YELLOW)
[2018-11-01 16:43] LABS: ALANINE AMINOTRANSFERASE 19 Units/L (12-78); ALBUMIN 4.2 g/dL (3.4-5.0); ALKALINE PHOSPHATASE 119 Units/L (46-116); ASPARTATE AMINO TRANSFERASE 23 Units/L (15-37); BLOOD UREA NITROGEN 12 mg/dL (7-18); CARBON DIOXIDE 29.6 mmol/L (21-32); CHLORIDE 103 mmol/L (98-107); CKMB % 0.5 % (<4); CREATINE KINASE 207 Units/L (26-192); CREATINE KINASE MB < 1.0 ng/mL (0-4.0); CREATININE 1.38 mg/dL (0.55-1.02); SODIUM 140 mmol/L (136-145); TROPONIN I < 0.02 ng/mL (0-1.5); eGFR NON BLACK RACES 41 (>60)
[2018-11-01 16:44] LABS: BACTERIA,URINE TRACE /HPF (NEGATIVE); RBC,URINE 0-2 /HPF (NONE SEEN); SQUAMOUS EPITHELIAL CELL,UR RARE /HPF (NEGATIVE)
[2018-11-01] MEDS ORDERED: MICRO K EXTEN CAP 10 MEQ PO PRN (16:46)
[2018-11-01] MEDS ORDERED: POTASSIUM CHLORIDE LIQ 20 MEQ UDC PO PRN (16:46)
[2018-11-01] MEDS ORDERED: MAGNESIUM SULFATE 1 GRAM/100 mL PREMIX 1 GM/100 ML BAG IV PRN (16:46)
[2018-11-01] MEDS ORDERED: POTASSIUM CHL 40 MEQ/NS 0.45% 500 ML IV PRN (16:46)
[2018-11-01] MEDS ORDERED: KLOR-CON PO PRN (16:46)
[2018-11-01] MEDS ORDERED: POTASSIUM CHL 60 MEQ/NS 0.45% 500 ML IV PRN (16:46)
[2018-11-01 16:48] VITALS: BMI 18.8
[2018-11-01] MEDS: K-RIDER 10 MEQ/NS 100 ML 10 MEQ/100 ML BAG IV PRN ×3 (17:34→20:27)
[2018-11-01] MEDS: TYLENOL 325 MG TAB PO PRN (18:54)
[2018-11-01 22:39] LABS: CKMB % 0.6 % (<4); CREATINE KINASE 162 Units/L (26-192); CREATINE KINASE MB < 1.0 ng/mL (0-4.0); TROPONIN I < 0.02 ng/mL (0-1.5)
[2018-11-01] MEDS: XANAX PO PRN (22:50)
[2018-11-02 04:37] LABS: BASOPHILS % (AUTO) 0.5 % (0.2-1.0); EOSINOPHILS # (AUTO) 0.1 x10^3/uL (0.0-0.2); EOSINOPHILS % (AUTO) 2.3 % (0.9-2.9); HEMATOCRIT 34.7 % (36.0-47.0); HEMOGLOBIN 11.8 g/dL (12.0-16.0); LYMPHOCYTES # (AUTO) 2.3 X10^3/uL (1.3-2.9); MEAN CORPUSCULAR HEMOGLOBIN 30.3 pg (27.0-34.0); MEAN CORPUSCULAR VOLUME 89.4 fL (80.0-100.0); MEAN PLATELET VOLUME 8.4 fL (7.4-11.0); MONOCYTES # (AUTO) 0.2 x10^3/uL (0.3-0.8); MONOCYTES % (AUTO) 5.5 % (0.0-13.0); NEUTROPHILS # (AUTO) 1.6 x10^3/uL (2.2-4.8); NEUTROPHILS % (AUTO) 37.7 % (42.0-75.0); PLATELET COUNT 252 X10^3/uL (150.0-450.0); RED BLOOD COUNT 3.88 X10^6/uL (3.5-5.4); WHITE BLOOD COUNT 4.2 X10^3/uL (3.6-10.0)
[2018-11-02 04:38] LABS: ALANINE AMINOTRANSFERASE 19 Units/L (12-78); ALBUMIN 3.4 g/dL (3.4-5.0); ALKALINE PHOSPHATASE 103 Units/L (46-116); ASPARTATE AMINO TRANSFERASE 18 Units/L (15-37); BLOOD UREA NITROGEN 10 mg/dL (7-18); CALCIUM 8.9 mg/dL (8.5-10.1); CARBON DIOXIDE 25.9 mmol/L (21-32); CHLORIDE 105 mmol/L (98-107); CKMB % 0.8 % (<4); CREATINE KINASE 130 Units/L (26-192); CREATINE KINASE MB < 1.0 ng/mL (0-4.0); CREATININE 1.28 mg/dL (0.55-1.02); SODIUM 139 mmol/L (136-145); TOTAL PROTEIN 6.5 g/dL (6.4-8.2); TROPONIN I < 0.02 ng/mL (0-1.5); eGFR NON BLACK RACES 44 (>60)
[2018-11-02] MEDS: K-DUR TAB 20 MEQ PO PRN (06:16)
[2018-11-02] MEDS ORDERED: XANAX PO PRN (08:33)
--- NOTE | 2018-11-02 09:35 | DR.H&P ---
H&P - History & Physical for Day of: H&P Date: 11/01/18 - Chief Complaint Chief Complaint: More confusion, voiding incontinently - History of Present Illness History of Present Illness: The patient is a 67-year-old white female who presents with her daughter secondary to change of condition. daughter states that she is acting more confused and voiding incontinently. Patient does have underlying dementia. States that she is weaker and needs more assistance with ADLs. Denies fever. Daughter and patient states she is interested in group home placement again due to condition of mother. - Past Medical History Past Medical History: Anxiety, Arthritis, Depression, GERD, Hypothyroidism, PUD Additional Medical History: SYSTEMIC LUPUS, INSOMNIA, COMPRESSION FX THORACIC SPINE, BARRETTS ESOPHAGUS, +RODRÍGUEZ - Past Surgical History Surgical History: Hysterectomy, Tonsillectomy - Family History Family Medical History: Cancer - Social History Does patient currently use any type of tobacco product: No Have you used tobacco products in the last 12 months: No Type of Tobacco Use: None Does any household member use tobacco: No Alcohol Use: None - Medications Home Medications: egg Allergy (Verified 11/02/18 07:48) loratadine [From Claritin] Allergy (Verified 11/01/18 16:04) ondansetron [From Zofran] Allergy (Verified 11/01/18 16:04) Penicillins Allergy (Verified 11/01/18 16:04) promethazine [From Phenergan] Allergy (Verified 11/01/18 16:04) CONTINUE taking the following medications alprazolam 1 mg PO BID PRN 11/01/18 [History] amlodipine 5 mg PO DAILY 11/01/18 [History] carbidopa-levodopa 1 tab PO TID 11/01/18 [History] donepezil 10 mg PO DAILY 11/01/18 [History] furosemide 20 mg PO DAILY 11/01/18 [History] gabapentin 100 mg PO BID 11/01/18 [History] levothyroxine 50 mcg PO DAILY 11/01/18 [History] megestrol 40 mg PO BID 11/01/18 [History] mirtazapine 30 mg PO HS 11/01/18 [History] omeprazole 40 mg PO DAILY 11/01/18 [History] pramipexole 0.5 mg PO BID 11/01/18 [History] trazodone 50 mg PO HS 11/01/18 [History] - Review of Systems Constitutional: Weakness Eyes: No Symptoms Reported ENT: No Symptoms Reported Respiratory: No Symptoms Reported Cardiovascular: No Symptoms Reported Gastrointestinal: Abdominal Pain Genitourinary: Dysuria, Incontinence Musculoskeletal: No Symptoms Reported Skin: No Symptoms Reported Neurological: Weakness - Physical Exam Vital Signs: Temperature 99.1 F Pulse Rate [Left] 80 Respiratory Rate 18 Blood Pressure [Right Arm] 124/59 Blood Pressure [Left Arm] 108/59 Blood Pressure 114/59 O2 Sat by Pulse Oximetry 100 Oriented: Normal Eyes: Normal Ear: Normal Nose: Normal Throat: Normal Respiratory: Clear Throughout Cardiovascular: Normal : Normal Auscultation: Bowel Sounds: Normal Palpation: Normal Tenderness: Suprapubic Skin: Normal Musculoskeletal: Motor Deficit Psychiatric: Depression Mood Description: Calm, Flat Affect: Quiet, Normal Speech Pattern: Clear - Assessment/Plan (1) Altered mental status Status: Acute Plan: Labs, IV Hydration (2) Dementia Status: Acute (3) UTI (urinary tract infection) Status: Acute Plan: Labs, IV Hydration, IV antibiotic (4) Weakness Status: Acute Plan: Labs, IV Hydration, PT consult - Allergies Allergies/Adverse Reactions: Allergies Allergy/AdvReac Type Severity Reaction Status Date / Time egg Allergy Verified 11/02/18 07:48 loratadine [From Claritin] Allergy Verified 11/01/18 16:04 ondansetron [From Zofran] Allergy Verified 11/01/18 16:04 Penicillins Allergy Verified 11/01/18 16:04 promethazine [From Phenergan] Allergy Verified 11/01/18 16:04
[2018-11-02] MEDS: LASIX PO SCH (11:28)
[2018-11-02] MEDS: ARICEPT TAB 10 MG PO SCH (11:28)
[2018-11-02] MEDS: NS 1000 ML 1,000 ML IV SCH ×2 (11:28)
[2018-11-02] MEDS: NORVASC TAB 5 MG PO SCH (11:29)
[2018-11-02] MEDS: PriLOSEC PO SCH (11:29)
[2018-11-02] MEDS: MIRAPEX TAB 1 MG PO SCH ×2 (11:29→20:28)
[2018-11-02] MEDS: MEGACE PO SCH ×2 (11:29→20:29)
[2018-11-02] MEDS: NEURONTIN CAP 100 MG PO SCH ×2 (11:29→20:29)
[2018-11-02] MEDS: SINEMET (PLAIN) 10/100 MG PO SCH ×3 (11:30→21:47)
[2018-11-02] MEDS: CIPRO IV 400 MG PREMIX* 400 MG/200 ML IV.SOLN. IV SCH ×2 (11:30→20:26)
[2018-11-02] MEDS: SYNTHROID 50 mcg TAB PO SCH (11:30)
[2018-11-02] MEDS: XANAX PO PRN (11:30)
--- NOTE | 2018-11-02 13:52 | PCM.PROG ---
Progress Note - Progress Note for Day of Date of Exam: 11/02/18 - Subjective Subjective: 67 WF ADMITTED ON 11/01 WITH DEHYDRATION, UTI, WEAKNESS AND HYPOKALEMIA. PT HAS SEVERE RA WITH HX OF CVA AND IS TOTAL CARE AT HOME. PT IS CURRENTLY ON IV ATBX, GENTLE IV HYDRATION AND POTASSIUM REPLACEMENT. PLAN TO RESUME HOME MEDICATION AND CONSULT CASE MANAGEMENT FOR INTERMEDIATE PLACEMENT. - Past Medical Family Social History Past Med/Fam/Surg Hx: No changes since H&P Allergies: Allergies egg Allergy (Verified 11/02/18 07:48) loratadine [From Claritin] Allergy (Verified 11/01/18 16:04) ondansetron [From Zofran] Allergy (Verified 11/01/18 16:04) Penicillins Allergy (Verified 11/01/18 16:04) promethazine [From Phenergan] Allergy (Verified 11/01/18 16:04) - Review of Systems ROS: No change since H&P - Vital Signs and I&O's Vital Signs: Temperature 98.1 F Pulse Rate [Left] 80 Respiratory Rate 18 Blood Pressure [Right Arm] 109/51 Blood Pressure [Left Arm] 108/59 Blood Pressure 114/59 O2 Sat by Pulse Oximetry 100 Intake and Output: Intake & Output 10/31/18 11/01/18 11/02/18 11/03/18 11:59 11:59 11:59 11:59 Intake Total 900 / 900 Balance 900 / 900 - Physical Exam Oriented: Normal Eyes: Normal Ear: Normal Nose: Normal Throat: Normal Respiratory: Diminished Cardiovascular: Normal : Normal Auscultation: Bowel Sounds: Normal Tenderness: Suprapubic Skin: Normal Musculoskeletal: Right, Left, Hand, Back:Lumbar, Deformity, Motor Deficit Psychiatric: Depression Mood Description: Calm, Flat Affect: Quiet, Normal Speech Pattern: Clear - Laboratory and Diagnostics Result Diagrams: 11/02/18 04:05 11/02/18 12:03 Labs: 11/01/18 16:20 Urine,Clean Catch Urine Culture - Preliminary Laboratory WBC 4.2 X10^3/uL (3.6-10.0) 11/02/18 04:05 RBC 3.88 X10^6/uL (3.5-5.4) 11/02/18 04:05 Hgb 11.8 g/dL (12.0-16.0) L 11/02/18 04:05 Hct 34.7 % (36.0-47.0) L 11/02/18 04:05 MCV 89.4 fL (80.0-100.0) 11/02/18 04:05 MCH 30.3 pg (27.0-34.0) 11/02/18 04:05 MCHC 34.0 g/dL (33.0-35.0) 11/02/18 04:05 RDW 14.0 % (11.6-16.5) 11/02/18 04:05 Plt Count 252 X10^3/uL (150.0-450.0) 11/02/18 04:05 MPV 8.4 fL (7.4-11.0) 11/02/18 04:05 Neut % (Auto) 37.7 % (42.0-75.0) L 11/02/18 04:05 Lymph % (Auto) 54.0 % (21.0-51.0) H 11/02/18 04:05 [place] % (Auto) 5.5 % (0.0-13.0) 11/02/18 04:05 Eos % (Auto) 2.3 % (0.9-2.9) 11/02/18 04:05 Baso % (Auto) 0.5 % (0.2-1.0) 11/02/18 04:05 Neut # (Auto) 1.6 x10^3/uL (2.2-4.8) L 11/02/18 04:05 Lymph # (Auto) 2.3 X10^3/uL (1.3-2.9) 11/02/18 04:05 [place] # (Auto) 0.2 x10^3/uL (0.3-0.8) L 11/02/18 04:05 Eos # (Auto) 0.1 x10^3/uL (0.0-0.2) 11/02/18 04:05 Baso # (Auto) 0.0 X10^3/uL (0.0-0.1) 11/02/18 04:05 Absolute Nucleated RBC 0.1 /100WBC 11/02/18 04:05 Sodium 139 mmol/L (136-145) 11/02/18 04:05 Corrected Sodium TNP 11/02/18 04:05 Potassium 4.0 mmol/L (3.5-5.1) 11/02/18 12:03 Chloride 105 mmol/L (98-107) 11/02/18 04:05 Carbon Dioxide 25.9 mmol/L (21-32) 11/02/18 04:05 BUN 10 mg/dL (7-18) 11/02/18 04:05 Creatinine 1.28 mg/dL (0.55-1.02) H 11/02/18 04:05 Est GFR (MDRD) Af Amer 54 (>60) L 11/02/18 04:05 Est GFR (MDRD) Non-Af 44 (>60) L 11/02/18 04:05 Glucose 89 mg/dL (65-99) 11/02/18 04:05 Calcium 8.9 mg/dL (8.5-10.1) 11/02/18 04:05 Corrected Calcium TNP 11/02/18 04:05 Magnesium 2.1 mg/dL (1.7-2.9) 11/01/18 16:05 Total Bilirubin 0.70 mg/dL (0.2-1.0) 11/02/18 04:05 AST 18 Units/L (15-37) 11/02/18 04:05 ALT 19 Units/L (12-78) 11/02/18 04:05 Alkaline Phosphatase 103 Units/L (46-116) 11/02/18 04:05 Creatine Kinase 130 Units/L (26-192) 11/02/18 04:05 CK-MB (CK-2) < 1.0 ng/mL (0-4.0) 11/02/18 04:05 CK/CKMB % Calc 0.8 % (<4) 11/02/18 04:05 Troponin I < 0.02 ng/mL (0-1.5) 11/02/18 04:05 Total Protein 6.5 g/dL (6.4-8.2) 11/02/18 04:05 Albumin 3.4 g/dL (3.4-5.0) 11/02/18 04:05 Globulin 3.1 g/dL (2.5-4.5) 11/02/18 04:05 Albumin/Globulin Ratio 1.1 Ratio (1.1-2.1) 11/02/18 04:05 Specimen Type Clean catch urine 11/01/18 16:20 Urine Color Straw (YELLOW) 11/01/18 16:20 Urine Appearance Clear (CLEAR) 11/01/18 16:20 Urine pH 7.0 (5.0 - 8.0) 11/01/18 16:20 Ur Specific [place] 1.010 (1.000-1.030) 11/01/18 16:20 Urine Protein Negative (NEGATIVE) 11/01/18 16:20 Urine Glucose (UA) Negative (NEGATIVE) 11/01/18 16:20 Urine Ketones Negative (NEGATIVE) 11/01/18 16:20 Urine Occult Blood Negative (NEGATIVE) 11/01/18 16:20 Urine Nitrite Negative (NEGATIVE) 11/01/18 16:20 Urine Bilirubin Negative (NEGATIVE) 11/01/18 16:20 Urine Urobilinogen Normal (NORMAL) 11/01/18 16:20 Ur Leukocyte Esterase 2+ (NEGATIVE) 11/01/18 16:20 Urine RBC 0-2 /HPF (NONE SEEN) 11/01/18 16:20 Urine WBC 3-5 /HPF (NONE SEEN) 11/01/18 16:20 Ur Squamous Epith Cells Rare /HPF (NEGATIVE) 11/01/18 16:20 Urine Bacteria Trace /HPF (NEGATIVE) 11/01/18 16:20 Ur Culture Indicated? Yes/culture set up 11/01/18 16:20 - Plan (1) UTI (urinary tract infection) Status: Acute Plan: Labs, IV Hydration, IV antibiotic. CONTINUE HOME MEDICATION. BP CONTROL (2) Rheumatoid arthritis Status: Acute (3) Altered mental status Status: Acute Plan: Labs, IV Hydration (4) Dementia Status: Acute (5) Influenza Status: Acute (6) SIMA (generalized anxiety disorder) Status: Chronic
[2018-11-02] MEDS: TYLENOL 325 MG TAB PO PRN (20:27)
[2018-11-02] MEDS: REMERON PO SCH (20:29)
[2018-11-02] MEDS ORDERED: DESYREL PO SCH (21:00)
[2018-11-03] MEDS: SINEMET (PLAIN) 10/100 MG PO SCH ×3 (05:04→21:10)
[2018-11-03 05:25] LABS: BASOPHILS % (AUTO) 0.6 % (0.2-1.0); EOSINOPHILS # (AUTO) 0.1 x10^3/uL (0.0-0.2); EOSINOPHILS % (AUTO) 1.9 % (0.9-2.9); HEMATOCRIT 35.4 % (36.0-47.0); LYMPHOCYTES # (AUTO) 2.2 X10^3/uL (1.3-2.9); LYMPHOCYTES % (AUTO) 46.9 % (21.0-51.0); MEAN CORPUSCULAR HGB CONC 33.9 g/dL (33.0-35.0); MEAN CORPUSCULAR VOLUME 88.3 fL (80.0-100.0); MEAN PLATELET VOLUME 8.7 fL (7.4-11.0); MONOCYTES # (AUTO) 0.3 x10^3/uL (0.3-0.8); MONOCYTES % (AUTO) 6.2 % (0.0-13.0); NEUTROPHILS # (AUTO) 2.1 x10^3/uL (2.2-4.8); NEUTROPHILS % (AUTO) 44.4 % (42.0-75.0); PLATELET COUNT 243 X10^3/uL (150.0-450.0); RED BLOOD COUNT 4.01 X10^6/uL (3.5-5.4); WHITE BLOOD COUNT 4.6 X10^3/uL (3.6-10.0)
[2018-11-03 05:41] LABS: ALANINE AMINOTRANSFERASE 9 Units/L (12-78); ALBUMIN 3.4 g/dL (3.4-5.0); ALKALINE PHOSPHATASE 102 Units/L (46-116); ASPARTATE AMINO TRANSFERASE 18 Units/L (15-37); BLOOD UREA NITROGEN 11 mg/dL (7-18); CALCIUM 8.8 mg/dL (8.5-10.1); CARBON DIOXIDE 21.4 mmol/L (21-32); CHLORIDE 105 mmol/L (98-107); CREATININE 1.32 mg/dL (0.55-1.02); SODIUM 139 mmol/L (136-145); TOTAL PROTEIN 6.7 g/dL (6.4-8.2); eGFR NON BLACK RACES 43 (>60)
[2018-11-03] MEDS: K-DUR TAB 20 MEQ PO PRN (05:56)
[2018-11-03] MEDS: NS 1000 ML 1,000 ML IV SCH ×2 (07:11→08:31)
[2018-11-03] MEDS: XANAX PO PRN ×2 (08:31→20:45)
[2018-11-03] MEDS: MEGACE PO SCH ×2 (08:33→20:46)
[2018-11-03] MEDS: SYNTHROID 50 mcg TAB PO SCH (08:33)
[2018-11-03] MEDS: PriLOSEC PO SCH (08:33)
[2018-11-03] MEDS: NEURONTIN CAP 100 MG PO SCH ×2 (08:33→20:46)
[2018-11-03] MEDS: NORVASC TAB 5 MG PO SCH (08:33)
[2018-11-03] MEDS: LASIX PO SCH (08:33)
[2018-11-03] MEDS: ARICEPT TAB 10 MG PO SCH (08:33)
[2018-11-03] MEDS: CIPRO IV 400 MG PREMIX* 400 MG/200 ML IV.SOLN. IV SCH ×2 (08:34→20:45)
[2018-11-03] MEDS: MIRAPEX TAB 1 MG PO SCH ×2 (08:34→20:45)
[2018-11-03] MEDS ORDERED: BUTT CREAM (COMPOUND) TOP PRN (13:58)
--- NOTE | 2018-11-03 18:29 | PCM.PROG ---
Progress Note - Progress Note for Day of Date of Exam: 11/03/18 - Subjective Subjective: 67 WF ADMITTED ON 11/01 WITH DEHYDRATION, UTI, PYELONEPHRITIS, WEAKNESS AND HYPOKALEMIA. PT HAS SEVERE RA WITH HX OF CVA AND IS TOTAL CARE AT HOME. PT IS CURRENTLY ON IV CIPRO, GENTLE IV HYDRATION AND POTASSIUM REPLACEMENT. CULTURE ARE PENDING. PT CO INCREASED ANXIETY THIS AM AND DIFFICULTY SLEEPING. WE WILL CONTINUE IV ATBX AND CONSULT CASE MANAGEMENT FOR RESIDENTIAL PLACEMENT FOLLOW IMPROVEMENT OF ACUTE ILLNESS. - Past Medical Family Social History Past Med/Fam/Surg Hx: No changes since H&P Allergies: Allergies egg Allergy (Verified 11/02/18 07:48) loratadine [From Claritin] Allergy (Verified 11/01/18 16:04) ondansetron [From Zofran] Allergy (Verified 11/01/18 16:04) Penicillins Allergy (Verified 11/01/18 16:04) promethazine [From Phenergan] Allergy (Verified 11/01/18 16:04) - Review of Systems ROS: No change since H&P - Vital Signs and I&O's Vital Signs: Temperature 98.3 F Pulse Rate [Left] 84 Respiratory Rate 18 Blood Pressure [Right Arm] 102/55 Blood Pressure [Left Arm] 108/59 Blood Pressure 114/59 O2 Sat by Pulse Oximetry 96 Intake and Output: Intake & Output 11/01/18 11/02/18 11/03/18 11/04/18 11:59 11:59 11:59 11:59 Intake Total 900 / 900 2080 / 2080 880 / 880 Balance 900 / 900 2080 / 2080 880 / 880 - Physical Exam Oriented: Normal Eyes: Normal Ear: Normal Nose: Normal Throat: Normal Respiratory: Diminished Cardiovascular: Normal : Normal Auscultation: Bowel Sounds: Normal Tenderness: Suprapubic Skin: Normal Musculoskeletal: Right, Left, Hand, Back:Lumbar, Deformity, Motor Deficit Psychiatric: Depression Mood Description: Calm, Flat Affect: Quiet, Normal Speech Pattern: Clear, Appropriate - Laboratory and Diagnostics Result Diagrams: 11/03/18 04:47 11/03/18 04:47 Labs: 11/01/18 16:10 Blood Blood Culture - Preliminary 11/01/18 16:05 Blood Blood Culture - Preliminary 11/01/18 16:20 Urine,Clean Catch Urine Culture - Preliminary Laboratory WBC 4.6 X10^3/uL (3.6-10.0) 11/03/18 04:47 RBC 4.01 X10^6/uL (3.5-5.4) 11/03/18 04:47 Hgb 12.0 g/dL (12.0-16.0) 11/03/18 04:47 Hct 35.4 % (36.0-47.0) L 11/03/18 04:47 MCV 88.3 fL (80.0-100.0) 11/03/18 04:47 MCH 30.0 pg (27.0-34.0) 11/03/18 04:47 MCHC 33.9 g/dL (33.0-35.0) 11/03/18 04:47 RDW 14.0 % (11.6-16.5) 11/03/18 04:47 Plt Count 243 X10^3/uL (150.0-450.0) 11/03/18 04:47 MPV 8.7 fL (7.4-11.0) 11/03/18 04:47 Neut % (Auto) 44.4 % (42.0-75.0) 11/03/18 04:47 Lymph % (Auto) 46.9 % (21.0-51.0) 11/03/18 04:47 [place] % (Auto) 6.2 % (0.0-13.0) 11/03/18 04:47 Eos % (Auto) 1.9 % (0.9-2.9) 11/03/18 04:47 Baso % (Auto) 0.6 % (0.2-1.0) 11/03/18 04:47 Neut # (Auto) 2.1 x10^3/uL (2.2-4.8) L 11/03/18 04:47 Lymph # (Auto) 2.2 X10^3/uL (1.3-2.9) 11/03/18 04:47 [place] # (Auto) 0.3 x10^3/uL (0.3-0.8) 11/03/18 04:47 Eos # (Auto) 0.1 x10^3/uL (0.0-0.2) 11/03/18 04:47 Baso # (Auto) 0.0 X10^3/uL (0.0-0.1) 11/03/18 04:47 Absolute Nucleated RBC 0.1 /100WBC 11/03/18 04:47 Sodium 139 mmol/L (136-145) 11/03/18 04:47 Corrected Sodium TNP 11/03/18 04:47 Potassium 3.6 mmol/L (3.5-5.1) 11/03/18 04:47 Chloride 105 mmol/L (98-107) 11/03/18 04:47 Carbon Dioxide 21.4 mmol/L (21-32) 11/03/18 04:47 BUN 11 mg/dL (7-18) 11/03/18 04:47 Creatinine 1.32 mg/dL (0.55-1.02) H 11/03/18 04:47 Est GFR (MDRD) Af Amer 52 (>60) L 11/03/18 04:47 Est GFR (MDRD) Non-Af 43 (>60) L 11/03/18 04:47 Glucose 100 mg/dL (65-99) H 11/03/18 04:47 Calcium 8.8 mg/dL (8.5-10.1) 11/03/18 04:47 Corrected Calcium TNP 11/03/18 04:47 Magnesium 2.1 mg/dL (1.7-2.9) 11/01/18 16:05 Total Bilirubin 0.70 mg/dL (0.2-1.0) 11/03/18 04:47 AST 18 Units/L (15-37) 11/03/18 04:47 ALT 9 Units/L (12-78) L 11/03/18 04:47 Alkaline Phosphatase 102 Units/L (46-116) 11/03/18 04:47 Creatine Kinase 130 Units/L (26-192) 11/02/18 04:05 CK-MB (CK-2) < 1.0 ng/mL (0-4.0) 11/02/18 04:05 CK/CKMB % Calc 0.8 % (<4) 11/02/18 04:05 Troponin I < 0.02 ng/mL (0-1.5) 11/02/18 04:05 Total Protein 6.7 g/dL (6.4-8.2) 11/03/18 04:47 Albumin 3.4 g/dL (3.4-5.0) 11/03/18 04:47 Globulin 3.3 g/dL (2.5-4.5) 11/03/18 04:47 Albumin/Globulin Ratio 1.0 Ratio (1.1-2.1) L 11/03/18 04:47 Specimen Type Clean catch urine 11/01/18 16:20 Urine Color Straw (YELLOW) 11/01/18 16:20 Urine Appearance Clear (CLEAR) 11/01/18 16:20 Urine pH 7.0 (5.0 - 8.0) 11/01/18 16:20 Ur Specific [place] 1.010 (1.000-1.030) 11/01/18 16:20 Urine Protein Negative (NEGATIVE) 11/01/18 16:20 Urine Glucose (UA) Negative (NEGATIVE) 11/01/18 16:20 Urine Ketones Negative (NEGATIVE) 11/01/18 16:20 Urine Occult Blood Negative (NEGATIVE) 11/01/18 16:20 Urine Nitrite Negative (NEGATIVE) 11/01/18 16:20 Urine Bilirubin Negative (NEGATIVE) 11/01/18 16:20 Urine Urobilinogen Normal (NORMAL) 11/01/18 16:20 Ur Leukocyte Esterase 2+ (NEGATIVE) 11/01/18 16:20 Urine RBC 0-2 /HPF (NONE SEEN) 11/01/18 16:20 Urine WBC 3-5 /HPF (NONE SEEN) 11/01/18 16:20 Ur Squamous Epith Cells Rare /HPF (NEGATIVE) 11/01/18 16:20 Urine Bacteria Trace /HPF (NEGATIVE) 11/01/18 16:20 Ur Culture Indicated? Yes/culture set up 11/01/18 16:20 - Plan (1) UTI (urinary tract infection) Status: Acute Plan: Labs, IV Hydration, IV antibiotic. CONTINUE HOME MEDICATION. BP CONTROL (2) Rheumatoid arthritis Status: Acute (3) Altered mental status Status: Acute Plan: Labs, IV Hydration (4) Pyelonephritis Status: Acute Plan: IV CIPRO, CULTURE COLLECTED ON ADMISSION (5) Dementia Status: Acute (6) Influenza Status: Acute (7) SIMA (generalized anxiety disorder) Status: Chronic
[2018-11-03] MEDS: DESYREL PO SCH (20:46)
[2018-11-03] MEDS: REMERON PO SCH (20:46)
[2018-11-04] MEDS: SINEMET (PLAIN) 10/100 MG PO SCH ×3 (05:08→22:00)
[2018-11-04 07:11] LABS: BASOPHILS % (AUTO) 0.5 % (0.2-1.0); EOSINOPHILS # (AUTO) 0.1 x10^3/uL (0.0-0.2); EOSINOPHILS % (AUTO) 1.9 % (0.9-2.9); HEMATOCRIT 33.8 % (36.0-47.0); HEMOGLOBIN 11.5 g/dL (12.0-16.0); LYMPHOCYTES % (AUTO) 44.7 % (21.0-51.0); MEAN CORPUSCULAR HEMOGLOBIN 29.8 pg (27.0-34.0); MEAN CORPUSCULAR VOLUME 87.9 fL (80.0-100.0); MEAN PLATELET VOLUME 8.8 fL (7.4-11.0); MONOCYTES # (AUTO) 0.3 x10^3/uL (0.3-0.8); MONOCYTES % (AUTO) 6.1 % (0.0-13.0); NEUTROPHILS # (AUTO) 2.1 x10^3/uL (2.2-4.8); NEUTROPHILS % (AUTO) 46.8 % (42.0-75.0); PLATELET COUNT 258 X10^3/uL (150.0-450.0); RED BLOOD COUNT 3.85 X10^6/uL (3.5-5.4); RED CELL DISTRIBUTION WIDTH 13.6 % (11.6-16.5); WHITE BLOOD COUNT 4.4 X10^3/uL (3.6-10.0)
[2018-11-04 07:19] LABS: ALANINE AMINOTRANSFERASE 12 Units/L (12-78); ALBUMIN 3.2 g/dL (3.4-5.0); ALKALINE PHOSPHATASE 96 Units/L (46-116); ASPARTATE AMINO TRANSFERASE 14 Units/L (15-37); BLOOD UREA NITROGEN 10 mg/dL (7-18); CALCIUM 8.7 mg/dL (8.5-10.1); CARBON DIOXIDE 23.1 mmol/L (21-32); CHLORIDE 106 mmol/L (98-107); COR CA(FOR HYPOALB) 9.3 mg/dL (8.5-10.1); CREATININE 1.23 mg/dL (0.55-1.02); SODIUM 141 mmol/L (136-145); TOTAL PROTEIN 6.4 g/dL (6.4-8.2); eGFR NON BLACK RACES 47 (>60)
[2018-11-04] MEDS: NS 1000 ML 1,000 ML IV SCH ×2 (08:41→11:02)
[2018-11-04] MEDS: PriLOSEC PO SCH (08:42)
[2018-11-04] MEDS: NORVASC TAB 5 MG PO SCH (08:42)
[2018-11-04] MEDS: MIRAPEX TAB 1 MG PO SCH ×2 (08:42→20:50)
[2018-11-04] MEDS: MEGACE PO SCH ×2 (08:42→20:49)
[2018-11-04] MEDS: CIPRO IV 400 MG PREMIX* 400 MG/200 ML IV.SOLN. IV SCH (08:43)
[2018-11-04] MEDS: SYNTHROID 50 mcg TAB PO SCH (08:43)
[2018-11-04] MEDS: ARICEPT TAB 10 MG PO SCH (08:43)
[2018-11-04] MEDS: LASIX PO SCH (08:43)
[2018-11-04] MEDS: K-DUR TAB 20 MEQ PO PRN (08:43)
[2018-11-04] MEDS: NEURONTIN CAP 100 MG PO SCH ×2 (08:43→20:49)
[2018-11-04] MEDS: XANAX PO PRN ×2 (08:52→20:49)
[2018-11-04] MEDS: INVANZ INJ 1 GM VIAL 1 GM in NS 100 ML IV + SPIKE MINIBAG* 100 ML IV SCH (13:27)
--- NOTE | 2018-11-04 14:04 | PCM.PROG ---
Progress Note - Progress Note for Day of Date of Exam: 11/04/18 - Subjective Subjective: 67 WF ADMITTED ON 11/01 WITH DEHYDRATION, UTI, PYELONEPHRITIS, WEAKNESS AND HYPOKALEMIA. K+3.4 THIS AM. BUN 10 CREAT 1.23. PT HAS SEVERE RA WITH HX OF CVA AND IS TOTAL CARE AT HOME. PT IS CURRENTLY RECEIVIGN GENTLE IV HYDRATION AND POTASSIUM REPLACEMENT. URINE CULTURE + ECOLI, IV INVANZ STARTED. PT CO INCREASED ANXIETY , WE INCREASED TRAZODONE LAST PM. WE WILL CONTINUE IV ATBX AND CONSULT CASE MANAGEMENT FOR GROUP HOME PLACEMENT FOLLOW IMPROVEMENT OF ACUTE ILLNESS. - Past Medical Family Social History Past Med/Fam/Surg Hx: No changes since H&P Allergies: Allergies egg Allergy (Verified 11/02/18 07:48) loratadine [From Claritin] Allergy (Verified 11/01/18 16:04) ondansetron [From Zofran] Allergy (Verified 11/01/18 16:04) Penicillins Allergy (Verified 11/01/18 16:04) promethazine [From Phenergan] Allergy (Verified 11/01/18 16:04) - Review of Systems ROS: No change since H&P - Vital Signs and I&O's Vital Signs: Temperature 97.6 F Pulse Rate [Left] 83 Respiratory Rate 18 Blood Pressure [Right Arm] 100/59 Blood Pressure [Left Arm] 108/59 Blood Pressure 114/59 O2 Sat by Pulse Oximetry 100 Intake and Output: Intake & Output 11/02/18 11/03/18 11/04/18 11/05/18 11:59 11:59 11:59 11:59 Intake Total 900 / 900 2079 Balance 900 / 900 2079 - Physical Exam Oriented: Normal Eyes: Normal Ear: Normal Nose: Normal Throat: Normal Respiratory: Diminished Cardiovascular: Normal : Normal Auscultation: Bowel Sounds: Normal Tenderness: Suprapubic Skin: Normal Musculoskeletal: Right, Left, Hand, Back:Lumbar, Deformity, Motor Deficit Psychiatric: Depression Mood Description: Calm, Flat Affect: Quiet, Normal Speech Pattern: Clear, Appropriate - Laboratory and Diagnostics Result Diagrams: 11/04/18 05:33 11/04/18 05:33 Labs: 11/01/18 16:20 Urine,Clean Catch Urine Culture - Final Escherichia Coli 11/01/18 16:10 Blood Blood Culture - Preliminary 11/01/18 16:05 Blood Blood Culture - Preliminary Laboratory WBC 4.4 X10^3/uL (3.6-10.0) 11/04/18 05:33 RBC 3.85 X10^6/uL (3.5-5.4) 11/04/18 05:33 Hgb 11.5 g/dL (12.0-16.0) L 11/04/18 05:33 Hct 33.8 % (36.0-47.0) L 11/04/18 05:33 MCV 87.9 fL (80.0-100.0) 11/04/18 05:33 MCH 29.8 pg (27.0-34.0) 11/04/18 05:33 MCHC 34.0 g/dL (33.0-35.0) 11/04/18 05:33 RDW 13.6 % (11.6-16.5) 11/04/18 05:33 Plt Count 258 X10^3/uL (150.0-450.0) 11/04/18 05:33 MPV 8.8 fL (7.4-11.0) 11/04/18 05:33 Neut % (Auto) 46.8 % (42.0-75.0) 11/04/18 05:33 Lymph % (Auto) 44.7 % (21.0-51.0) 11/04/18 05:33 [place] % (Auto) 6.1 % (0.0-13.0) 11/04/18 05:33 Eos % (Auto) 1.9 % (0.9-2.9) 11/04/18 05:33 Baso % (Auto) 0.5 % (0.2-1.0) 11/04/18 05:33 Neut # (Auto) 2.1 x10^3/uL (2.2-4.8) L 11/04/18 05:33 Lymph # (Auto) 2.0 X10^3/uL (1.3-2.9) 11/04/18 05:33 [place] # (Auto) 0.3 x10^3/uL (0.3-0.8) 11/04/18 05:33 Eos # (Auto) 0.1 x10^3/uL (0.0-0.2) 11/04/18 05:33 Baso # (Auto) 0.0 X10^3/uL (0.0-0.1) 11/04/18 05:33 Absolute Nucleated RBC 0.1 /100WBC 11/04/18 05:33 ESR 42 MM/HOUR (0-20) H 11/03/18 18:32 Sodium 141 mmol/L (136-145) 11/04/18 05:33 Corrected Sodium TNP 11/04/18 05:33 Potassium 3.4 mmol/L (3.5-5.1) L 11/04/18 05:33 Chloride 106 mmol/L (98-107) 11/04/18 05:33 Carbon Dioxide 23.1 mmol/L (21-32) 11/04/18 05:33 BUN 10 mg/dL (7-18) 11/04/18 05:33 Creatinine 1.23 mg/dL (0.55-1.02) H 11/04/18 05:33 Est GFR (MDRD) Af Amer 56 (>60) L 11/04/18 05:33 Est GFR (MDRD) Non-Af 47 (>60) L 11/04/18 05:33 Glucose 99 mg/dL (65-99) 11/04/18 05:33 Calcium 8.7 mg/dL (8.5-10.1) 11/04/18 05:33 Corrected Calcium 9.3 mg/dL (8.5-10.1) 11/04/18 05:33 Magnesium 2.1 mg/dL (1.7-2.9) 11/01/18 16:05 Total Bilirubin 0.40 mg/dL (0.2-1.0) 11/04/18 05:33 AST 14 Units/L (15-37) L 11/04/18 05:33 ALT 12 Units/L (12-78) 11/04/18 05:33 Alkaline Phosphatase 96 Units/L (46-116) 11/04/18 05:33 Creatine Kinase 130 Units/L (26-192) 11/02/18 04:05 CK-MB (CK-2) < 1.0 ng/mL (0-4.0) 11/02/18 04:05 CK/CKMB % Calc 0.8 % (<4) 11/02/18 04:05 Troponin I < 0.02 ng/mL (0-1.5) 11/02/18 04:05 C-Reactive Protein 5.30 mg/L (0-3.0) H 11/03/18 18:32 Total Protein 6.4 g/dL (6.4-8.2) 11/04/18 05:33 Albumin 3.2 g/dL (3.4-5.0) L 11/04/18 05:33 Globulin 3.2 g/dL (2.5-4.5) 11/04/18 05:33 Albumin/Globulin Ratio 1.0 Ratio (1.1-2.1) L 11/04/18 05:33 Specimen Type Clean catch urine 11/01/18 16:20 Urine Color Straw (YELLOW) 11/01/18 16:20 Urine Appearance Clear (CLEAR) 11/01/18 16:20 Urine pH 7.0 (5.0 - 8.0) 11/01/18 16:20 Ur Specific [place] 1.010 (1.000-1.030) 11/01/18 16:20 Urine Protein Negative (NEGATIVE) 11/01/18 16:20 Urine Glucose (UA) Negative (NEGATIVE) 11/01/18 16:20 Urine Ketones Negative (NEGATIVE) 11/01/18 16:20 Urine Occult Blood Negative (NEGATIVE) 11/01/18 16:20 Urine Nitrite Negative (NEGATIVE) 11/01/18 16:20 Urine Bilirubin Negative (NEGATIVE) 11/01/18 16:20 Urine Urobilinogen Normal (NORMAL) 11/01/18 16:20 Ur Leukocyte Esterase 2+ (NEGATIVE) 11/01/18 16:20 Urine RBC 0-2 /HPF (NONE SEEN) 11/01/18 16:20 Urine WBC 3-5 /HPF (NONE SEEN) 11/01/18 16:20 Ur Squamous Epith Cells Rare /HPF (NEGATIVE) 11/01/18 16:20 Urine Bacteria Trace /HPF (NEGATIVE) 11/01/18 16:20 Ur Culture Indicated? Yes/culture set up 11/01/18 16:20 - Plan (1) UTI (urinary tract infection) Status: Acute Plan: Labs, IV Hydration, IV antibiotic. CONTINUE HOME MEDICATION. BP CONTROL (2) Rheumatoid arthritis Status: Acute (3) Altered mental status Status: Acute Plan: Labs, IV Hydration (4) Pyelonephritis Status: Acute Plan: IV CIPRO, CULTURE COLLECTED ON ADMISSION (5) Dementia Status: Acute (6) SIMA (generalized anxiety disorder) Status: Chronic
[2018-11-04] MEDS: REMERON PO SCH (20:49)
[2018-11-04] MEDS: DESYREL PO SCH (20:49)
[2018-11-05] MEDS: NS 1000 ML 1,000 ML IV SCH ×2 (00:37→13:18)
[2018-11-05 05:31] LABS: BASOPHILS % (AUTO) 0.5 % (0.2-1.0); EOSINOPHILS # (AUTO) 0.1 x10^3/uL (0.0-0.2); HEMATOCRIT 31.1 % (36.0-47.0); HEMOGLOBIN 10.7 g/dL (12.0-16.0); LYMPHOCYTES # (AUTO) 2.1 X10^3/uL (1.3-2.9); LYMPHOCYTES % (AUTO) 49.8 % (21.0-51.0); MEAN CORPUSCULAR HEMOGLOBIN 30.6 pg (27.0-34.0); MEAN CORPUSCULAR HGB CONC 34.3 g/dL (33.0-35.0); MEAN CORPUSCULAR VOLUME 89.1 fL (80.0-100.0); MEAN PLATELET VOLUME 8.4 fL (7.4-11.0); MONOCYTES # (AUTO) 0.3 x10^3/uL (0.3-0.8); MONOCYTES % (AUTO) 6.3 % (0.0-13.0); NEUTROPHILS # (AUTO) 1.7 x10^3/uL (2.2-4.8); NEUTROPHILS % (AUTO) 41.4 % (42.0-75.0); PLATELET COUNT 234 X10^3/uL (150.0-450.0); RED BLOOD COUNT 3.49 X10^6/uL (3.5-5.4); RED CELL DISTRIBUTION WIDTH 13.9 % (11.6-16.5); WHITE BLOOD COUNT 4.2 X10^3/uL (3.6-10.0)
[2018-11-05 05:38] LABS: ALANINE AMINOTRANSFERASE 10 Units/L (12-78); ALBUMIN 2.9 g/dL (3.4-5.0); ALKALINE PHOSPHATASE 100 Units/L (46-116); ASPARTATE AMINO TRANSFERASE 12 Units/L (15-37); BLOOD UREA NITROGEN 14 mg/dL (7-18); CALCIUM 8.3 mg/dL (8.5-10.1); CARBON DIOXIDE 21.9 mmol/L (21-32); CHLORIDE 109 mmol/L (98-107); COR CA(FOR HYPOALB) 9.2 mg/dL (8.5-10.1); CREATININE 1.35 mg/dL (0.55-1.02); SODIUM 143 mmol/L (136-145); TOTAL PROTEIN 5.9 g/dL (6.4-8.2); eGFR NON BLACK RACES 42 (>60)
[2018-11-05] MEDS: SINEMET (PLAIN) 10/100 MG PO SCH ×3 (06:35→22:00)
[2018-11-05] MEDS: SYNTHROID 50 mcg TAB PO SCH (08:27)
[2018-11-05] MEDS: PriLOSEC PO SCH (08:27)
[2018-11-05] MEDS: MEGACE PO SCH ×2 (08:27→20:58)
[2018-11-05] MEDS: NORVASC TAB 5 MG PO SCH (08:27)
[2018-11-05] MEDS: LASIX PO SCH (08:27)
[2018-11-05] MEDS: MIRAPEX TAB 1 MG PO SCH ×2 (08:27→20:57)
[2018-11-05] MEDS: INVANZ INJ 1 GM VIAL 1 GM in NS 100 ML IV + SPIKE MINIBAG* 100 ML IV SCH (08:27)
[2018-11-05] MEDS: NEURONTIN CAP 100 MG PO SCH ×2 (08:27→20:57)
[2018-11-05] MEDS: ARICEPT TAB 10 MG PO SCH (08:27)
[2018-11-05] MEDS: XANAX PO PRN ×2 (08:28→20:56)
[2018-11-05] MEDS: REMERON PO SCH (20:57)
[2018-11-05] MEDS: DESYREL PO SCH (20:57)
[2018-11-06] MEDS: NS 1000 ML 1,000 ML IV SCH ×3 (00:38→13:20)
[2018-11-06 04:55] LABS: BASOPHILS % (AUTO) 0.8 % (0.2-1.0); EOSINOPHILS # (AUTO) 0.1 x10^3/uL (0.0-0.2); EOSINOPHILS % (AUTO) 2.3 % (0.9-2.9); HEMATOCRIT 31.6 % (36.0-47.0); LYMPHOCYTES % (AUTO) 45.6 % (21.0-51.0); MEAN CORPUSCULAR HEMOGLOBIN 30.6 pg (27.0-34.0); MEAN CORPUSCULAR HGB CONC 34.7 g/dL (33.0-35.0); MEAN CORPUSCULAR VOLUME 88.1 fL (80.0-100.0); MEAN PLATELET VOLUME 7.9 fL (7.4-11.0); MONOCYTES # (AUTO) 0.3 x10^3/uL (0.3-0.8); MONOCYTES % (AUTO) 6.2 % (0.0-13.0); NEUTROPHILS # (AUTO) 1.9 x10^3/uL (2.2-4.8); NEUTROPHILS % (AUTO) 45.1 % (42.0-75.0); PLATELET COUNT 269 X10^3/uL (150.0-450.0); RED BLOOD COUNT 3.58 X10^6/uL (3.5-5.4); WHITE BLOOD COUNT 4.3 X10^3/uL (3.6-10.0)
[2018-11-06 05:05] LABS: CALCIUM 8.3 mg/dL (8.5-10.1); CARBON DIOXIDE 23.3 mmol/L (21-32); COR CA(FOR HYPOALB) 9.1 mg/dL (8.5-10.1); CREATININE 1.29 mg/dL (0.55-1.02); TOTAL PROTEIN 6.1 g/dL (6.4-8.2)
[2018-11-06] MEDS: SINEMET (PLAIN) 10/100 MG PO SCH ×3 (05:42→22:02)
[2018-11-06] MEDS: XANAX PO PRN ×2 (08:02→22:02)
[2018-11-06] MEDS: NORVASC TAB 5 MG PO SCH (08:03)
[2018-11-06] MEDS: INVANZ INJ 1 GM VIAL 1 GM in NS 100 ML IV + SPIKE MINIBAG* 100 ML IV SCH (08:03)
[2018-11-06] MEDS: LASIX PO SCH (08:03)
[2018-11-06] MEDS: PriLOSEC PO SCH (08:03)
[2018-11-06] MEDS: NEURONTIN CAP 100 MG PO SCH ×2 (08:03→22:01)
[2018-11-06] MEDS: ARICEPT TAB 10 MG PO SCH (08:03)
[2018-11-06] MEDS: MIRAPEX TAB 1 MG PO SCH ×2 (08:03→22:01)
[2018-11-06] MEDS: SYNTHROID 50 mcg TAB PO SCH (08:03)
[2018-11-06] MEDS: MEGACE PO SCH ×2 (08:03→22:01)
[2018-11-06] MEDS: PREPARATION H OINT RECTAL PRN ×2 (08:07→22:00)
[2018-11-06] MEDS: DESYREL PO SCH (22:02)
[2018-11-06] MEDS: REMERON PO SCH (22:02)
[2018-11-07] MEDS: NS 1000 ML 1,000 ML IV SCH ×3 (04:14→15:33)
[2018-11-07 05:19] LABS: BASOPHILS # (AUTO) 0.1 X10^3/uL (0.0-0.1); BASOPHILS % (AUTO) 1.1 % (0.2-1.0); EOSINOPHILS # (AUTO) 0.1 x10^3/uL (0.0-0.2); EOSINOPHILS % (AUTO) 2.6 % (0.9-2.9); HEMATOCRIT 30.9 % (36.0-47.0); HEMOGLOBIN 10.6 g/dL (12.0-16.0); LYMPHOCYTES # (AUTO) 2.2 X10^3/uL (1.3-2.9); LYMPHOCYTES % (AUTO) 44.9 % (21.0-51.0); MEAN CORPUSCULAR HEMOGLOBIN 30.2 pg (27.0-34.0); MEAN CORPUSCULAR HGB CONC 34.4 g/dL (33.0-35.0); MEAN CORPUSCULAR VOLUME 87.7 fL (80.0-100.0); MEAN PLATELET VOLUME 8.4 fL (7.4-11.0); MONOCYTES # (AUTO) 0.3 x10^3/uL (0.3-0.8); MONOCYTES % (AUTO) 6.3 % (0.0-13.0); NEUTROPHILS # (AUTO) 2.2 x10^3/uL (2.2-4.8); NEUTROPHILS % (AUTO) 45.1 % (42.0-75.0); PLATELET COUNT 261 X10^3/uL (150.0-450.0); RED BLOOD COUNT 3.52 X10^6/uL (3.5-5.4); WHITE BLOOD COUNT 4.8 X10^3/uL (3.6-10.0)
[2018-11-07 05:25] LABS: ALANINE AMINOTRANSFERASE 11 Units/L (12-78); ALKALINE PHOSPHATASE 94 Units/L (46-116); ASPARTATE AMINO TRANSFERASE 14 Units/L (15-37); BLOOD UREA NITROGEN 9 mg/dL (7-18); CALCIUM 8.4 mg/dL (8.5-10.1); CARBON DIOXIDE 24.1 mmol/L (21-32); CHLORIDE 109 mmol/L (98-107); COR CA(FOR HYPOALB) 9.2 mg/dL (8.5-10.1); SODIUM 145 mmol/L (136-145); TOTAL PROTEIN 5.9 g/dL (6.4-8.2); eGFR NON BLACK RACES 48 (>60)
[2018-11-07] MEDS: SINEMET (PLAIN) 10/100 MG PO SCH ×2 (05:28→15:32)
[2018-11-07] MEDS: XANAX PO PRN (07:09)
[2018-11-07] MEDS: TYLENOL 325 MG TAB PO PRN (07:10)
[2018-11-07] MEDS: LASIX PO SCH (08:07)
[2018-11-07] MEDS: NEURONTIN CAP 100 MG PO SCH (08:07)
[2018-11-07] MEDS: MEGACE PO SCH (08:07)
[2018-11-07] MEDS: ARICEPT TAB 10 MG PO SCH (08:07)
[2018-11-07] MEDS: MIRAPEX TAB 1 MG PO SCH (08:07)
[2018-11-07] MEDS: INVANZ INJ 1 GM VIAL 1 GM in NS 100 ML IV + SPIKE MINIBAG* 100 ML IV SCH (08:07)
[2018-11-07] MEDS: NORVASC TAB 5 MG PO SCH (08:08)
[2018-11-07] MEDS: SYNTHROID 50 mcg TAB PO SCH (08:08)
[2018-11-07] MEDS: PriLOSEC PO SCH (08:08)
[2018-11-07 15:38] VITALS: BP 107/55
== END 2018-11-07 19:15 | DRG 690 ==
LOC: MED/SURG
PROVIDERS: ADMIT Internal Medicine; ATTEND Internal Medicine
DX: E86.0 Dehydration; B96.29 Other Escherichia coli [E. coli] as the cause of diseases classified elsewhere; R41.82 Altered mental status, unspecified; R62.7 Adult failure to thrive; M06.80 Other specified rheumatoid arthritis, unspecified site; R26.89 Other abnormalities of gait and mobility; E03.8 Other specified hypothyroidism; E87.6 Hypokalemia; F03.90 Unspecified dementia, unspecified severity, without behavioral disturbance, psychotic disturbance, mood disturbance, and anxiety; M32.8 Other forms of systemic lupus erythematosus; N39.0 Urinary tract infection, site not specified; F41.8 Other specified anxiety disorders; N12 Tubulo-interstitial nephritis, not specified as acute or chronic; J10.1 Influenza due to other identified influenza virus with other respiratory manifestations
CPT/HCPCS: 36415; 71010; 71045; 80053; 81001; 82550; 82553; 83735; 84132; 84484; 85025; 85652; 86140; 87040; 87086; 87088; 87186; 93005; 97110; 97112; 97116; 97162; 97166; 97530; 97535; 99231; A4216; A4222; S0179; G0378; J0744; J1335; J3480; J3490; J7030; J7050